=== PATIENT | female | born 1960 | race Hispanic/Latino ===

== ENCOUNTER 2016-12-13 10:47 | Emergency (ER) | payer MEDICARE ==
[2016-12-13] MEDS ORDERED: MOTRIN PO ONE (14:11)
[2016-12-13 14:48] VITALS: BP 166/88
--- NOTE | 2016-12-13 17:16 | Emergency Department Report ---
Entered by RONALD DANIELS, acting as scribe for KOBI LÓPEZ PA. ED General Adult HPI - General Chief complaint: Extremity Injury, Upper Stated complaint: EYE SWOLLEN/ARM PAIN Time Seen by Provider: 12/13/16 13:11 Source: patient, family Mode of arrival: Ambulatory Limitations: No Limitations - History of Present Illness Initial comments: 56 year old female with a PMHx of HTN and IDDM presents to the ED c/o right eye swelling that began this morning. Patient states she was playing 2 days ago, and was subsequently hit on the eye with an elbow. Associated symptoms include blurry vision in right eye and mild headache, but she denies right eye discharge , nausea, vomiting, chest pain, SOB, fever, and chills. Patient also c/o of left arm pain that began 1 week ago. Rates pain an 8/10 in severity and describes the pain as pulling in quality. Notes she had a titanium plate and 9 screws placed in left arm in 2005. Associated symptom include swelling, but denies numbness and tingling. Denies any injury or falls. Allergic to metronidazole. MD Complaint: Right eye swelling/left forearm pain Onset/Timin -: week(s) (left forearm pain), This morning (right eye swelling) Location: eyes (right), upper extremity (left forearm) Radiation: non-radiation Severity scale (0 -10): 7 (left forearm) Quality: other (pulling) Consistency: constant Improves with: none Worsens with: none Associated Symptoms: denies other symptoms, headaches, other (blurry vision in right eye and left forearm swelling, but denies right eye purulent drainage, numbness, and tingling). denies: chest pain, cough, fever/chills, nausea/ vomiting, rash, shortness of breath, weakness - Related Data Home Medications Medication Instructions Recorded Confirmed Last Taken Triamter/Hctz 37.5-25 mg 1 tab PO QDAY 10/07/14 10/15/14 09/29/16 [Maxzide-25] Canagliflozin [Invokana] 300 mg PO DAILY 09/29/16 09/29/16 09/29/16 metFORMIN [Glucophage] 500 mg PO BID 09/29/16 09/29/16 09/29/16 Previous Rx's Medication Instructions Recorded Last Taken Type Gentamicin 0.3% Oph Soln 2 drops OP Q4H #1 bottle 10/15/14 Unknown Rx Cyclobenzaprine [Flexeril 10 MG 10 mg PO DAILY #20 tablet 12/13/16 Unknown Rx TAB] Meloxicam [Mobic] 7.5 mg PO TID #30 tablet 12/13/16 Unknown Rx Tetrahydrz/Dext 70/Peg 400/Pvp 1 - 2 drops OP TID #15 ml 12/13/16 Unknown Rx [Eye Drops Advanced Relief] Allergies Allergy/AdvReac Type Severity Reaction Status Date / Time metronidazole [From Flagyl] AdvReac Hives Verified 10/15/14 07:34 Metronidazole HCl AdvReac Hives Verified 10/15/14 07:34 [From Flagyl] ED Review of Systems Comment: All other systems reviewed and negative Constitutional: other (tingling). denies: chills, fever Eyes: eye pain (right), vision change (blurry vision in right eye) Respiratory: denies: cough, orthopnea, shortness of breath, SOB with exertion, SOB at rest, stridor Cardiovascular: denies: chest pain, dyspnea on exertion, orthopnea Gastrointestinal: denies: abdominal pain, nausea, vomiting Musculoskeletal: joint swelling (minimal left forearm), other (left forearm pain ). denies: back pain Skin: denies: rash Neurological: headache. denies: numbness ED Past Medical Hx - Past Medical History Previous Medical History?: Yes Hx Hypertension: Yes (FOR 12 YRS, DR. 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 - Surgical History Past Surgical History?: Yes Hx Cholecystectomy: Yes Additional Surgical History: fistula surgery, hemorrhoidectomy, lap band surgery , titanium plate and 9 screws placed in L arm 2006 - Social History Smoking Status: Never Smoker Substance Use Type: None - Medications Home Medications: Home Medications Medication Instructions Recorded Confirmed Last Taken Type Triamter/Hctz 37.5-25 mg 1 tab PO QDAY 10/07/14 10/15/14 09/29/16 History [Maxzide-25] Gentamicin 0.3% Ophth Soln 2 drops OP Q4H #1 bottle 10/15/14 Unknown Rx Canagliflozin [Invokana] 300 mg PO DAILY 02/18/17 02/18/17 02/18/17 History metFORMIN [Glucophage] 500 mg PO BID 09/29/16 09/29/16 09/29/16 History Cyclobenzaprine [Flexeril 10 MG 10 mg PO DAILY #20 tablet 12/13/16 Unknown Rx TAB] Meloxicam [Mobic] 7.5 mg PO TID #30 tablet 12/13/16 Unknown Rx Tetrahydrz/Dext 70/Peg 400/Pvp 1 - 2 drops OP TID #15 ml 12/13/16 Unknown Rx [Eye Drops Advanced Relief] ED Physical Exam - General Limitations: No Limitations General appearance: alert, in no apparent distress - Head Head exam: Present: atraumatic, normocephalic - Eye Eye exam: Present: normal appearance, EOMI, other (right eye tenderness) Pupils: Present: normal accommodation - ENT ENT exam: Present: normal exam, mucous membranes moist - Neck Neck exam: Present: normal inspection, full ROM - Respiratory Respiratory exam: Present: normal lung sounds bilaterally. Absent: respiratory distress, wheezes, rales, rhonchi, stridor - Cardiovascular Cardiovascular Exam: Present: regular rate, normal rhythm. Absent: systolic murmur, diastolic murmur, rubs, gallop - GI/Abdominal GI/Abdominal exam: Present: soft, normal bowel sounds. Absent: distended, tenderness, guarding, rebound - Extremities Exam Extremities exam: Present: normal inspection, full ROM, tenderness (left forearm tenderness), normal capillary refill - Expanded Upper Extremity Exam Left General: Present: other, normal inspection Shoulder Exam: Present: normal inspection, full ROM Upper Arm exam: Present: normal inspection, full ROM. Absent: tenderness Elbow exam: Present: normal inspection, full ROM. Absent: tenderness Forearm Wrist exam: Present: normal inspection, full ROM, tenderness (left forearm tenderness), swelling (minimal). Absent: abrasion, ecchymosis, deformity, dislocation Hand Wrist exam: Present: normal inspection, full ROM. Absent: tenderness Neuro motor exam: Present: wrist extension intact, thumb opposition intact, thumb IP flexion intact, thumb adduction intact, fingers 2-5 abduction intact Neurosensory exam: Present: radial nerve intact, ulnar nerve intact, median nerve intact Vascular: Present: normal capillary refill, radial pulse (2+), brachial pulse (2 +), ulnar pulse (2+). Absent: vascular compromise, pulse deficit radial art, pulse deficit ulnar art, pulse deficit brachial art - Back Exam Back exam: Present: normal inspection, full ROM - Neurological Exam Neurological exam: Present: alert, oriented X3 - Psychiatric Psychiatric exam: Present: normal affect, normal mood - Skin Skin exam: Present: warm, dry, intact. Absent: rash ED Course Vital Signs 12/13/16 11:38 Temperature 98.6 F Pulse Rate 82 Respiratory 18 Rate Blood Pressure 175/112 O2 Sat by Pulse 98 Oximetry ED Medical Decision Making - Medical Decision Making 56-year-old female presents with blepharitis of the right eye upper lid ED course: Patient received Motrin in the ED. Vision intact bilaterally Patient is in no acute or respiratory distress. Vital signs are normal. Blood pressure mildly elevated. Discussed patient take her blood pressure medication upon returning home. Patient states she will comply and take her medication. Discussed with patient follow-up with her primary care physician. ED Disposition Clinical Impression: Blepharitis of upper eyelid Lumbar back pain Qualifiers: Chronicity: chronic Back pain laterality: right Sciatica presence: with sciatica Sciatica laterality: sciatica of right side Qualified Code(s): M54.41 - Lumbago with sciatica, right side; G89.29 - Other chronic pain Disposition: DISCHARGED TO HOME OR SELFCARE Is pt being admited?: No Does the pt Need Aspirin: No Condition: Stable Instructions: Blepharitis (ED), Lumbar Radiculopathy (ED) Prescriptions: Cyclobenzaprine [Flexeril 10 MG TAB] 10 mg PO DAILY #20 tablet Meloxicam [Mobic] 7.5 mg PO TID #30 tablet Tetrahydrz/Dext 70/Peg 400/Pvp [Eye Drops Advanced Relief] 1 - 2 drops OP TID # 15 ml Referrals: PRIMARY CAREMD [Primary Care Provider] - 3-5 Days HAKAN CERRATO MD [Referring] - 3-5 Days [facility] [Outside] - 3-5 Days [facility] [Outside] - 3-5 Days [facility] [Outside] - 3-5 Days Forms: Work/School Release Form(ED) Time of Disposition: 14:11 This documentation as recorded by the FRANCES singh JASMINE,accurately reflects the service I personally performed and the decisions made by ,KOBI LÓPEZ PA.
== END 2016-12-13 15:52 | disposition home or self-care (01) ==
LOC: ED 10:47
DX: H01.001 Unspecified blepharitis right upper eyelid (principal); M54.41 Lumbago with sciatica, right side; G89.29 Other chronic pain; I10 Essential (primary) hypertension; E11.9 Type 2 diabetes mellitus without complications
CPT/HCPCS: 99282

== ENCOUNTER 2017-12-13 11:35 | Emergency (ER) | payer MEDICARE ==
[2017-12-13 11:49] VITALS: BP 132/82
[2017-12-13] MEDS ORDERED: NORCO 5/325 PO ONE (13:16)
--- NOTE | 2017-12-13 13:20 | Emergency Department Report ---
Chief Complaint: Back Pain/Injury Stated Complaint: RIGHT LEG PAIN Time Seen by Provider: 12/13/17 13:11 - HPI History of Present Illness: 57-year-old female presents to the emergency department with complaint of pain to the low back with some sciatica like radiation of pain down her right leg. She also complains of pain to the right leg from the upper portion of the ludwig down through the ankle and foot. This all occurred after the patient fell in the shower 2 days ago. She was at [facility] and therefore did not seek any type of evaluation or treatment at that time. She does have a history of sciatica pain. She is not taking anything for her symptoms prior to presentation. Her primary care physician is Dr. Uriel Tellez. - ROS Review of Systems: Positive for back pain, shoulder pain, leg pain, bruising, sciatica Negative for numbness, obvious deformity, laceration - Exam Vital Signs: Vital Signs 12/13/17 11:47 Temperature 98.4 F Pulse Rate 85 Respiratory 18 Rate Blood Pressure 132/82 O2 Sat by Pulse 97 Oximetry Physical Exam: Patient is awake and alert and in no acute distress. She has some tenderness palpation to the right lower extremity from the mid tib-fib distally. There are some areas of ecchymosis to the distal tib-fib and the dorsum of the right foot. Heart and lungs normal auscultation. MSE screening note: Focused history and physical exam performed. Due to findings the following was ordered: Patient Fox x-ray of her right shoulder, lumbar spine, right tib-fib and right foot. She was given a Hawley for discomfort. ED Disposition for MSE Condition: Stable Referrals: URIEL TELLEZ MD [Primary Care Provider] - 3-5 Days
--- NOTE | 2017-12-13 14:00 | XRay Report ---
RIGHT FOOT, 3 views: History: Right foot pain. The bony architecture is intact. Bony alignment is normal. No soft tissue abnormalities are seen. The joint spaces appear preserved. Moderate plantar spur is noted. IMPRESSION: No acute process identified. Plantar spur.
--- NOTE | 2017-12-13 14:01 | XRay Report ---
RIGHT SHOULDER, 3 VIEWS: HISTORY: right shoulder pain. Normal bone mineralization. No acute osseous injury or joint pathology is detected. The soft tissues are unremarkable. IMPRESSION: Right shoulder within normal limits.
--- NOTE | 2017-12-13 14:01 | XRay Report ---
LUMBOSACRAL SPINE, 3 VIEWS: History: Back pain Findings: The vertebral bodies, disk spaces and posterior elements are intact. No compression deformity or malalignment. Moderate multilevel degenerative disc disease and facet arthropathy are noted. The SI joints are symmetric and unremarkable. Impression: Lumbar spondylosis. No evidence for acute injury to the lumbar spine.
--- NOTE | 2017-12-13 14:01 | XRay Report ---
RIGHT TIBIA/FIBULA: History: Right leg pain AP and lateral views of the right tibia/fibula demonstrate normal mineralization and contours for this patient's age. No destructive changes are noted and the adjacent soft tissues are normal. IMPRESSION: Unremarkable right tibia/fibula.
--- NOTE | 2017-12-13 15:25 | Emergency Department Report ---
ED Back Pain/Injury HPI - General Chief Complaint: Back Pain/Injury Stated Complaint: RIGHT LEG PAIN Time Seen by Provider: 12/13/17 13:11 Source: patient Limitations: No Limitations - History of Present Illness Initial Comments: This is a 57-year-old female Presents with low back pain with sciatica down the right lower extremity. Patient reports being [place] [facility] [place] at [place] conference and fell in the shower at the hotel [place] night. Patient reports immediately right lower extremity was burning and pain with weightbearing. When she woke up the next morning she did experience a headache and low back pain was sharp pains radiating down right leg. Her right shoulder was painful and she noticed mild swelling on lateral elbow area. She does have a history of chronic low back pain. She is currently taking and Greenway for pain and followed by Dr. Uriel Tellez. Patient reports pain medication is almost out and need something to help relieve pain. States she is having some numbness to the right lower extremity with mild swelling. Pain is aggravated with ambulating. Denies loss of consciousness, nausea/vomiting, chest pain, shortness of breath, and deformity. MD Complaint: back pain (midline back pain with sciatica on RLE), fall, other ( right shoulder) -: days(s) (3 days) Similar Symptoms Previously: Yes (history of chronic back pain with sciatica) [facility] Radiation: right leg Severity: moderate Severity scale (0 -10): 7 Quality: burning, aching Consistency: intermittent Improves With: immobilization, sitting upright Worsens With: movement, walking Context: fall Associated Symptoms: numbness, difficulty walking. denies: confusion, weakness , chest pain, cough, difficulty urinating, diaphoresis, incontinence, fever/ chills, constipation, headaches, abdominal pain, loss of appetite, malaise, nausea/vomiting, rash, seizure, shortness of breath, syncope Treatments Prior to Arrival: prescription analgesics - Related Data Home Medications Medication Instructions Recorded Confirmed Last Taken Triamter/Hctz 37.5-25 mg 1 tab PO QDAY 10/07/14 10/15/14 09/29/16 [Maxzide-25] Canagliflozin [Invokana] 300 mg PO DAILY 09/29/16 09/29/16 09/29/16 metFORMIN [Glucophage] 500 mg PO BID 09/29/16 09/29/16 09/29/16 Previous Rx's Medication Instructions Recorded Last Taken Type Gentamicin 0.3% Ophth Soln 2 drops OP Q4H #1 bottle 10/15/14 Unknown Rx Cyclobenzaprine [Flexeril 10 MG 10 mg PO DAILY #20 tablet 12/13/16 Unknown Rx TAB] Meloxicam [Mobic] 7.5 mg PO TID #30 tablet 12/13/16 Unknown Rx Tetrahydrz/Dext 70/Peg 400/Pvp 1 - 2 drops OP TID #15 ml 12/13/16 Unknown Rx [Eye Drops Advanced Relief] HYDROcodone/ACETAMINOPHEN [[place]way 1 each PO Q8H PRN #8 tablet 12/13/17 Unknown Rx 5-325 Tablet] methOCARBAMOL [Robaxin TAB] 500 mg PO BID PRN #10 tab 12/13/17 Unknown Rx Allergies Allergy/AdvReac Type Severity Reaction Status Date / Time metronidazole [From Flagyl] AdvReac Hives Verified 12/13/17 11:47 Metronidazole HCl AdvReac Hives Verified 12/13/17 11:47 [From Flagyl] ED Review of Systems ROS: Stated complaint: RIGHT LEG PAIN Other details as noted in HPI Constitutional: denies: chills, fever Respiratory: denies: cough, shortness of breath, wheezing Cardiovascular: denies: chest pain, palpitations, edema, syncope Gastrointestinal: denies: abdominal pain, nausea, vomiting, diarrhea Musculoskeletal: back pain (right shoulder pain and midline low back pain radiating down RLE), arthralgia (right shoulder pain with movement). 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 No distress. Alert and acting appropriately. Back/Abdomen: Yes Sacroiliac Tenderness (midline tenderness on deep palpation), Yes Straight Leg Raise Pain (RLE), No Abdominal Tenderness, No Perithoracic Tenderness, No Perilumbar Tenderness, No Flank Tenderness Neuro: Yes Normal Sensation, Yes Normal DTR's, No Motor Weakness, No Normal Gait (partial weight bearing to RLE) ED Course Vital Signs 12/13/17 12/13/17 11:47 13:20 Temperature 98.4 F Pulse Rate 85 Respiratory 18 18 Rate Blood Pressure 132/82 O2 Sat by Pulse 97 Oximetry Ed Back Pain Tests - Tests Tests: Normal X Rays ED Medical Decision Making - Radiology Data Radiology results: report reviewed RIGHT SHOULDER, 3 VIEWS: HISTORY: right shoulder pain. Normal bone mineralization. No acute osseous injury or joint pathology is detected. The soft tissues are unremarkable. IMPRESSION: Right shoulder within normal limits. RIGHT TIBIA/FIBULA: History: Right leg pain AP and lateral views of the right tibia/fibula demonstrate normal mineralization and contours for this patient's age. No destructive changes are noted and the adjacent soft tissues are normal. IMPRESSION: Unremarkable right tibia/fibula. RIGHT FOOT, 3 views: History: Right foot pain. The bony architecture is intact. Bony alignment is normal. No soft tissue abnormalities are seen. The joint spaces appear preserved. Moderate plantar spur is noted. IMPRESSION: No acute process identified. Plantar spur. LUMBOSACRAL SPINE, 3 VIEWS: History: Back pain Findings: The vertebral bodies, disk spaces and posterior elements are intact. No compression deformity or malalignment. Moderate multilevel degenerative disc disease and facet arthropathy are noted. The SI joints are symmetric and unremarkable. Impression: Lumbar spondylosis. No evidence for acute injury to the lumbar spine. - Medical Decision Making This is a 57 y.o. female that presents with right shoulder, midline lower back pain with sciatica to RLE from fall 3 days ago. Patient is stable and examined by me and Dr. Ayoub. Xray of L-Spine, right foot, right tibia/fibula, and right shoulder obtained and normal exam. No acute signs of distress noted. Discussed plan to start norco 5/325 mg po #8 and Robaxin. Patient agrees to ED plan of care. Discharged home. Follow up with PCP in 3 days. Critical care attestation.: If time is entered above; I have spent that time in minutes in the direct care of this critically ill patient, excluding procedure time. ED Disposition Clinical Impression: Muscle strain of lower extremity Qualifiers: Encounter type: initial encounter Laterality: right Qualified Code(s): S86.911A - Strain of unspecified muscle(s) and tendon(s) at lower leg level, right leg, initial encounter Low back pain with sciatica Qualifiers: Chronicity: acute Back pain laterality: midline Sciatica laterality: sciatica of right side Qualified Code(s): M54.41 - Lumbago with sciatica, right side Strain of shoulder, right Qualifiers: Encounter type: initial encounter Qualified Code(s): S46.911A - Strain of unspecified muscle, fascia and tendon at shoulder and upper arm level, right arm , initial encounter Disposition: TO HOME OR SELFCARE Is pt being admited?: No Does the pt Need Aspirin: No Condition: Stable Instructions: Ankle Exercises (GEN), Muscle Strain (ED), Lumbar Radiculopathy ( ED) Additional Instructions: Rest Use ice or heat on affected area for 20 minutes and off for 2 hours. Take pain medication as needed for pain. Don't drive or operate heavy machinery while taking muscle relaxers because they may cause drowsiness. Follow up with Primary Care Provider in 2-3 days. Prescriptions: HYDROcodone/ACETAMINOPHEN [Greenway 5-325 Tablet] 1 each PO Q8H PRN #8 tablet PRN Reason: Pain methOCARBAMOL [Robaxin TAB] 500 mg PO BID PRN #10 tab PRN Reason: Muscle Spasm Referrals: URIEL TELLEZ MD [Primary Care Provider] - 3-5 Days Time of Disposition: 15:46 Print Language: BAHRAINI ED Lower ext EXAM - Physical Exam General Appearance: obese Legs: right leg: ecchymosis, limited range of motion, soft tissue tenderness, swelling, left leg: non-tender, normal inspection, normal range of motion, no evidence of injury Ankle: right ankle: limited range of motion, pain, soft tissue tenderness, swelling, left ankle: non-tender, bilateral ankle: normal range of motion Neuro/Tendon: normal sensation Mental Status: alert, oriented x 3 Skin Exam: normal color Upper Extremity Exam - Exam General: Vital signs noted. No distress. Alert and acting appropriately. Head and Torso: No HEENT Abnormality, No Neck Tenderness, No Chest/Lungs Abnormality, No Abdominal Tenderness, No Back Tenderness Shoulder Exam: Yes Shoulder Tenderness, Yes AC Joint Tenderness, No Clavicle Tenderness, No Normal Range of Motion in Shoulder (limited to pain), No Shoulder Deformity Arm Exam: No Arm/Humerus Tenderness, No Arm Deformity Elbow: Yes Normal Range of Motion in Elbow, No Elbow Tenderness, No Elbow Deformity Forearm: No Forearm Tenderness, No Forearm Deformity, No Pain with Pronation, No Pain with Supination Wrist: Yes Normal ROM in Wrist, No Wrist Tenderness, No Wrist Deformity, No Snuffbox Tenderness, No Pain with Axial Thumb Compression Hand: Yes Normal ROM in Digit(s), No Hand Tenderness, No Hand Deformity, No Digit Tenderness, No Digit(s) Deformity, No Tendon Dysfunction CMS Exam: Yes Normal Distal Pulses, Yes Normal Capillary Refill, Yes Normal Distal Sensation, No Broken Skin
[2017-12-13] MEDS ORDERED: DECADRON IM ONE (15:46)
== END 2017-12-13 16:19 | disposition home or self-care (01) ==
LOC: ED 11:35
DX: S86.911A Strain of unspecified muscle(s) and tendon(s) at lower leg level, right leg, initial encounter (principal); S46.911A Strain of unspecified muscle, fascia and tendon at shoulder and upper arm level, right arm, initial encounter; M54.41 Lumbago with sciatica, right side; Z88.8 Allergy status to other drugs, medicaments and biological substances; X58.XXXA Exposure to other specified factors, initial encounter; Y93.89 Activity, other specified; Y92.89 Other specified places as the place of occurrence of the external cause; Y99.8 Other external cause status
CPT/HCPCS: 72100; 73030; 73590; 73630; 96372; 99283; J1100

== ENCOUNTER 2018-01-07 12:34 | Emergency (ER) | payer MEDICARE ==
--- NOTE | 2018-01-07 13:38 | Emergency Department Report ---
ED General Adult HPI - General Chief complaint: Extremity Injury, Lower Stated complaint: DIZZINESS Time Seen by Provider: 01/07/18 13:24 Source: patient Mode of arrival: Ambulatory Limitations: No Limitations - History of Present Illness Initial comments: Patient is 57 years old female with history of diabetes. Patient presented to the ER complaining of right leg pain and swelling and redness for the last 2 weeks. Patient was seen here 3 weeks ago for a fall with negative x-rays. She stated that a jar fell on her right leg. She stated that she is worried about infection since symptoms are not improving. She denied any fever, nausea or vomiting. - Related Data Home Medications Medication Instructions Recorded Confirmed Last Taken Triamter/Hctz 37.5-25 mg 1 tab PO QDAY 10/07/14 10/15/14 09/29/16 [Maxzide-25] Canagliflozin [Invokana] 300 mg PO DAILY 09/29/16 09/29/16 09/29/16 metFORMIN [Glucophage] 500 mg PO BID 09/29/16 09/29/16 09/29/16 Previous Rx's Medication Instructions Recorded Last Taken Type Gentamicin 0.3% Ophth Soln 2 drops OP Q4H #1 bottle 10/15/14 Unknown Rx Cyclobenzaprine [Flexeril 10 MG 10 mg PO DAILY #20 tablet 12/13/16 Unknown Rx TAB] Meloxicam [Mobic] 7.5 mg PO TID #30 tablet 12/13/16 Unknown Rx Tetrahydrz/Dext 70/Peg 400/Pvp 1 - 2 drops OP TID #15 ml 12/13/16 Unknown Rx [Eye Drops Advanced Relief] HYDROcodone/ACETAMINOPHEN [[place] 1 each PO Q8H PRN #8 tablet 12/13/17 Unknown Rx 5-325 Tablet] methOCARBAMOL [Robaxin TAB] 500 mg PO BID PRN #10 tab 12/13/17 Unknown Rx Allergies Allergy/AdvReac Type Severity Reaction Status Date / Time metronidazole [From Flagyl] AdvReac Hives Verified 12/13/17 11:47 Metronidazole HCl AdvReac Hives Verified 12/13/17 11:47 [From Flagyl] ED Review of Systems ROS: Stated complaint: DIZZINESS Other details as noted in HPI Comment: All other systems reviewed and negative Constitutional: denies: chills, fever Respiratory: denies: cough, orthopnea, shortness of breath, SOB with exertion Cardiovascular: denies: chest pain, palpitations Gastrointestinal: denies: abdominal pain, nausea, vomiting ED Past Medical Hx - Past Medical History Hx Hypertension: Yes Hx Diabetes: Yes Additional medical history: 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 - Surgical History Hx Cholecystectomy: Yes Additional Surgical History: fistula surgery, hemorrhoidectomy, lap band surgery , titanium plate and 9 screws placed in L arm 2005 - Social History Smoking Status: Never Smoker Substance Use Type: None - Medications Home Medications: Home Medications Medication Instructions Recorded Confirmed Last Taken Type Triamter/Hctz 37.5-25 mg 1 tab PO QDAY 10/07/14 10/15/14 09/29/16 History [Maxzide-25] Gentamicin 0.3% Ophth Soln 2 drops OP Q4H #1 bottle 10/15/14 Unknown Rx Canagliflozin [Invokana] 300 mg PO DAILY 09/29/16 09/29/16 09/29/16 History metFORMIN [Glucophage] 500 mg PO BID 09/29/16 09/29/16 09/29/16 History Cyclobenzaprine [Flexeril 10 MG 10 mg PO DAILY #20 tablet 12/13/16 Unknown Rx TAB] Meloxicam [Mobic] 7.5 mg PO TID #30 tablet 12/13/16 Unknown Rx Tetrahydrz/Dext 70/Peg 400/Pvp 1 - 2 drops OP TID #15 ml 12/13/16 Unknown Rx [Eye Drops Advanced Relief] HYDROcodone/ACETAMINOPHEN [[place] 1 each PO Q8H PRN #8 tablet 12/13/17 Unknown Rx 5-325 Tablet] methOCARBAMOL [Robaxin TAB] 500 mg PO BID PRN #10 tab 12/13/17 Unknown Rx ED Physical Exam - General Limitations: No Limitations General appearance: alert, in no apparent distress - Head Head exam: Present: atraumatic - ENT ENT exam: Present: normal exam, normal orophraynx - Neck Neck exam: Present: normal inspection - Respiratory Respiratory exam: Present: normal lung sounds bilaterally - Cardiovascular Cardiovascular Exam: Present: regular rate, normal rhythm, normal heart sounds - GI/Abdominal GI/Abdominal exam: Present: soft, normal bowel sounds. Absent: distended, tenderness, guarding, rebound, rigid - Extremities Exam Extremities exam: Present: tenderness, normal capillary refill. Absent: pedal edema, joint swelling, calf tenderness - Neurological Exam Neurological exam: Present: alert, oriented X3, CN II-XII intact, normal gait - Skin Skin exam: Present: warm, intact, normal color ED Course Vital Signs 01/07/18 12:48 Temperature 98.6 F Pulse Rate 109 H Respiratory 18 Rate Blood Pressure 153/96 O2 Sat by Pulse 100 Oximetry ED Medical Decision Making - Medical Decision Making Swelling and redness to the right lower leg could be due to inflammation from the recent injury or cellulitis. Patient refused x-ray. I will start patient on Keflex and Naprosyn. I advised patient to follow-up with her primary care physician and to return to the ER if her symptoms are not improving. Critical care attestation.: If time is entered above; I have spent that time in minutes in the direct care of this critically ill patient, excluding procedure time. ED Disposition Clinical Impression: Right leg pain, Cellulitis Disposition: DC-01 TO HOME OR SELFCARE Is pt being admited?: No Condition: Stable Instructions: Cellulitis (ED) Referrals: ZAHRA BEDOYA MD [Primary Care Provider] - 3-5 Days
[2018-01-07 13:45] VITALS: BP 148/92
== END 2018-01-07 13:45 | disposition home or self-care (01) ==
LOC: ED 12:34
DX: L03.115 Cellulitis of right lower limb (principal); I10 Essential (primary) hypertension; E11.9 Type 2 diabetes mellitus without complications; Z88.8 Allergy status to other drugs, medicaments and biological substances
CPT/HCPCS: 82962; 99283

== ENCOUNTER 2018-09-06 17:38 | Emergency (ER) | payer MEDICARE ==
[2018-09-06 18:44] LABS: Hemoglobin 14.6 gm/dl (10.1-14.3); Mean Corpuscular HGB Conc 33 % (30-34); Mean Corpuscular Volume 83 fl (79-97); Platelet Count 260 K/mm3 (140-440); Red Blood Count 5.29 M/mm3 (3.65-5.03); Red Cell Distribution Width 14.2 % (13.2-15.2)
[2018-09-06 19:01] LABS: Alanine Aminotransferase 18 units/L (7-56); Albumin 3.5 g/dL (3.9-5); BUN/Creatinine Ratio 10; Blood Urea Nitrogen 6 mg/dL (7-17); Calcium 8.6 mg/dL (8.4-10.2); Hemolysis Index 5
[2018-09-06 19:12] LABS: HCG Qualitative,Urine Negative (Negative)
[2018-09-06 19:16] LABS: Bacteria,Urine 1+ /HPF (Negative); Bilirubin,Urine NEG (Negative); Blood,Urine NEG (Negative); Color,Urine Yellow (Yellow); Mucus,Urine FEW /HPF; Protein,Urine <15 mg/dL mg/dL (Negative); RBC,Urine < 1.0 /HPF (0.0-6.0); Urobilinogen,Urine < 2.0 mg/dL (<2.0)
--- NOTE | 2018-09-06 20:15 | Emergency Department Report ---
ED Abdominal Pain HPI - General Chief Complaint: Abdominal Pain Stated Complaint: LOWER STOMACH PAIN Time Seen by Provider: 09/06/18 19:35 Source: patient, family Mode of arrival: Ambulatory Limitations: No Limitations - History of Present Illness Initial Comments: This is a 58-year-old female here report lower abdominal cramping started 3 days ago with last BM today. She says she had 5 PM today and once from regular to loose stool. Denies any fever or chills. Lower abdominal pain is 10/10 and cramping. Pain is intermittent and no exacerbating or alleviating factors. She says she try to take [id number] medication but no relief. She denies any urinary burning, frequency or urgency. Denies any back pain or fever or chills. Denies any chest pain or shortness of breath. MD Complaint: abdominal pain, other (nausea vomiting and diarrhea) Onset/Timin -: days(s) Location: suprapubic Radiation: none Migration to: no migration Severity: severe Severity scale (0 -10): 10 Quality: cramping Consistency: intermittent Improves With: nothing Worsens With: nothing Context: other (unknown) Associated Symptoms: nausea, vomiting, diarrhea. denies: fever, chills, constipation, dysuria, hematemesis, hematochezia, melena, hematuria, anorexia, syncope (is more) Treatments Prior to Arrival: antacids - Related Data LMP (females 10-50): other (menopause) Home Medications Medication Instructions Recorded Confirmed Last Taken Triamter/Hctz 37.5-25 mg 1 tab PO QDAY 10/07/14 10/15/14 09/29/16 [Maxzide-25] Canagliflozin [Invokana] 300 mg PO DAILY 09/29/16 09/29/16 09/29/16 metFORMIN [Glucophage] 500 mg PO BID 09/29/16 09/29/16 09/29/16 Previous Rx's Medication Instructions Recorded Last Taken Type Gentamicin 0.3% Ophth Soln 2 drops OP Q4H #1 bottle 10/15/14 Unknown Rx Cyclobenzaprine [Flexeril 10 MG 10 mg PO DAILY #20 tablet 12/13/16 Unknown Rx TAB] Meloxicam [Mobic] 7.5 mg PO TID #30 tablet 12/13/16 Unknown Rx Tetrahydrz/Dext 70/Peg 400/Pvp 1 - 2 drops OP TID #15 ml 12/13/16 Unknown Rx [Eye Drops Advanced Relief] HYDROcodone/ACETAMINOPHEN [[place] 1 each PO Q8H PRN #8 tablet 12/13/17 Unknown Rx 5-325 Tablet] methOCARBAMOL [Robaxin TAB] 500 mg PO BID PRN #10 tab 12/13/17 Unknown Rx Naproxen [Naprosyn] 500 mg PO BID #14 tablet 01/07/18 Unknown Rx cephALEXin [Keflex] 500 mg PO Q8HR #30 cap 01/07/18 Unknown Rx Dicyclomine [Bentyl] 40 mg PO Q8H 3 Days #9 tablet 09/06/18 Unknown Rx Promethazine [Phenergan TAB] 25 mg PO Q6HR PRN #12 tab 09/06/18 Unknown Rx Allergies Allergy/AdvReac Type Severity Reaction Status Date / Time metronidazole [From Flagyl] AdvReac Hives Verified 09/06/18 17:46 Metronidazole HCl AdvReac Hives Verified 09/06/18 17:46 [From Flagyl] ED Review of Systems ROS: Stated complaint: LOWER STOMACH PAIN Other details as noted in HPI Constitutional: denies: chills ENT: denies: throat pain, congestion Respiratory: denies: cough, shortness of breath, wheezing Cardiovascular: denies: chest pain, palpitations, edema, syncope Gastrointestinal: abdominal pain, nausea, vomiting, diarrhea. 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 - Surgical History Past Surgical History?: Yes Hx Cholecystectomy: Yes Additional Surgical History: fistula surgery, hemorrhoidectomy, lap band surgery, titanium plate and 9 screws placed in L arm 2006 - Family History Family history: diabetes, hypertension - Social History Smoking Status: Never Smoker Substance Use Type: Alcohol - Medications Home Medications: Home Medications Medication Instructions Recorded Confirmed Last Taken Type Triamter/Hctz 37.5-25 mg 1 tab PO QDAY 10/07/14 10/15/14 09/29/16 History [Maxzide-25] Gentamicin 0.3% Ophth Soln 2 drops OP Q4H #1 bottle 10/15/14 Unknown Rx Canagliflozin [Invokana] 300 mg PO DAILY 09/29/16 09/29/16 09/29/16 History metFORMIN [Glucophage] 500 mg PO BID 09/29/16 09/29/16 09/29/16 History Cyclobenzaprine [Flexeril 10 MG 10 mg PO DAILY #20 tablet 12/13/16 Unknown Rx TAB] Meloxicam [Mobic] 7.5 mg PO TID #30 tablet 12/13/16 Unknown Rx Tetrahydrz/Dext 70/Peg 400/Pvp 1 - 2 drops OP TID #15 ml 12/13/16 Unknown Rx [Eye Drops Advanced Relief] HYDROcodone/ACETAMINOPHEN [[place] 1 each PO Q8H PRN #8 tablet 12/13/17 Unknown Rx 5-325 Tablet] methOCARBAMOL [Robaxin TAB] 500 mg PO BID PRN #10 tab 12/13/17 Unknown Rx Naproxen [Naprosyn] 500 mg PO BID #14 tablet 01/07/18 Unknown Rx cephALEXin [Keflex] 500 mg PO Q8HR #30 cap 01/07/18 Unknown Rx Dicyclomine [Bentyl] 40 mg PO Q8H 3 Days #9 tablet 09/06/18 Unknown Rx Promethazine [Phenergan TAB] 25 mg PO Q6HR PRN #12 tab 09/06/18 Unknown Rx ED Physical Exam - General Limitations: No Limitations General appearance: alert, in no apparent distress - Head Head exam: Present: atraumatic, normocephalic, normal inspection - Eye Eye exam: Present: normal appearance, PERRL, EOMI Pupils: Present: normal accommodation - ENT ENT exam: Present: normal exam, normal orophraynx, mucous membranes moist - Neck Neck exam: Present: normal inspection, full ROM. Absent: tenderness, lymphadenopathy - Respiratory Respiratory exam: Present: normal lung sounds bilaterally. Absent: respiratory distress, chest wall tenderness - Cardiovascular Cardiovascular Exam: Present: regular rate, normal rhythm, normal heart sounds - GI/Abdominal GI/Abdominal exam: Present: soft, tenderness (mild tenderness abdomen generalized.), normal bowel sounds. Absent: distended, guarding, rebound, rigid, organomegaly, mass, bruit, pulsatile mass, hernia - Extremities Exam Extremities exam: Present: normal inspection, full ROM, normal capillary refill, other (No cce. + 2 pulses in all extremities, no neurovascular compromise). Absent: tenderness, pedal edema, joint swelling, calf tenderness - Back Exam Back exam: Present: normal inspection, full ROM, other (ambulates without any difficulties). Absent: tenderness, CVA tenderness (R), CVA tenderness (L) - Neurological Exam Neurological exam: Present: alert, oriented X3, normal gait - Psychiatric Psychiatric exam: Present: normal affect, normal mood - Skin Skin exam: Present: warm, dry, intact, normal color. Absent: rash ED Course Vital Signs 09/06/18 09/07/18 17:46 00:04 Temperature 97.7 F 97.2 F L Pulse Rate 91 H 74 Respiratory 18 18 Rate Blood Pressure 154/94 Blood Pressure 144/74 [Left] O2 Sat by Pulse 97 97 Oximetry - Reevaluation(s) Reevaluation #1: 09/06/18 21:37 Patient given Bentyl 40 mg by mouth, lidocaine 15 mL and Maalox 30 mL by mouth, 1 L of normal saline, Zofran 8 mg IV and morphine 4 mg IV for abdominal pain and nausea and vomiting. She says she felt better upon reevaluation and abdominal is nontender to palpate. I waited in results of CT scan with IV contrast. Reevaluation #2: 09/06/18 23:38 Patient is stable at present and abdomen is nontender. Pain had been relieved and no nausea. I discussed with her her results she was understanding. ED Medical Decision Making - Lab Data Result diagrams: 09/06/18 18:13 09/06/18 18:13 Lab Results 09/06/18 09/06/18 09/06/18 Range/Units 18:13 18:13 20:17 WBC 8.7 (4.5-11.0) K/mm3 RBC 5.29 H (3.65-5.03) M/mm3 Hgb 14.6 H (10.1-14.3) gm/dl Hct 44.0 H (30.3-42.9) % MCV 83 (79-97) fl MCH 28 (28-32) pg MCHC 33 (30-34) % RDW 14.2 (13.2-15.2) % Plt Count 260 (140-440) K/mm3 Sodium 142 (137-145) mmol/L Potassium 3.8 (3.6-5.0) mmol/L Chloride 103.3 (98-107) mmol/L Carbon Dioxide 26 (22-30) mmol/L Anion Gap 17 mmol/L BUN 6 L (7-17) mg/dL Creatinine 0.6 L (0.7-1.2) mg/dL Estimated GFR > 60 ml/min BUN/Creatinine Ratio 10 % Glucose 156 H (65-100) mg/dL Calcium 8.6 (8.4-10.2) mg/dL Total Bilirubin 0.30 (0.1-1.2) mg/dL AST 20 (5-40) units/L ALT 18 (7-56) units/L Alkaline Phosphatase 72 (35-129) units/L Total Protein 6.4 (6.3-8.2) g/dL Albumin 3.5 L (3.9-5) g/dL Albumin/Globulin Ratio 1.2 % Lipase 31 (13-60) units/L Urine Color (Yellow) Urine Turbidity (Clear) Urine pH (5.0-7.0) Ur Specific [place] (1.003-1.030) Urine Protein (Negative) mg/dL Urine Glucose (UA) (Negative) mg/dL Urine Ketones (Negative) mg/dL Urine Blood (Negative) Urine Nitrite (Negative) Ur Reducing Substances Urine Bilirubin (Negative) Urine Ictotest Urine Urobilinogen (<2.0) mg/dL Ur Leukocyte Esterase (Negative) Urine WBC (Auto) (0.0-6.0) /HPF Urine RBC (Auto) (0.0-6.0) /HPF U Epithel Cells (Auto) (0-13.0) /HPF Urine Bacteria (Auto) (Negative) /HPF Urine Mucus /HPF Urine HCG, Qual (Negative) 09/06/18 Range/Units Unknown WBC (4.5-11.0) K/mm3 RBC (3.65-5.03) M/mm3 Hgb (10.1-14.3) gm/dl Hct (30.3-42.9) % MCV (79-97) fl MCH (28-32) pg MCHC (30-34) % RDW (13.2-15.2) % Plt Count (140-440) K/mm3 Sodium (137-145) mmol/L Potassium (3.6-5.0) mmol/L Chloride (98-107) mmol/L Carbon Dioxide (22-30) mmol/L Anion Gap mmol/L BUN (7-17) mg/dL Creatinine (0.7-1.2) mg/dL Estimated GFR ml/min BUN/Creatinine Ratio % Glucose (65-100) mg/dL Calcium (8.4-10.2) mg/dL Total Bilirubin (0.1-1.2) mg/dL AST (5-40) units/L ALT (7-56) units/L Alkaline Phosphatase (35-129) units/L Total Protein (6.3-8.2) g/dL Albumin (3.9-5) g/dL Albumin/Globulin Ratio % Lipase (13-60) units/L Urine Color Yellow (Yellow) Urine Turbidity Clear (Clear) Urine pH 5.0 (5.0-7.0) Ur Specific [place] 1.014 (1.003-1.030) Urine Protein <15 mg/dl (Negative) mg/dL Urine Glucose (UA) Neg (Negative) mg/dL Urine Ketones Tr (Negative) mg/dL Urine Blood Neg (Negative) Urine Nitrite Neg (Negative) Ur Reducing Substances Not Reportable Urine Bilirubin Neg (Negative) Urine Ictotest Not Reportable Urine Urobilinogen < 2.0 (<2.0) mg/dL Ur Leukocyte Esterase Neg (Negative) Urine WBC (Auto) 1.0 (0.0-6.0) /HPF Urine RBC (Auto) < 1.0 (0.0-6.0) /HPF U Epithel Cells (Auto) < 1.0 (0-13.0) /HPF Urine Bacteria (Auto) 1+ (Negative) /HPF Urine Mucus Few /HPF Urine HCG, Qual Negative (Negative) - Radiology Data Radiology results: report reviewed Patient had CT scan of the abdomen and pelvis with IV contrast which was dictated by radiologist and report reviewed by myself and showed diffuse fatty infiltrate of the liver with enlarged liver. Correlation with LFTs recommended but patient LFTs are normal. Reports is otherwise no acute findings in the abdomen and pelvis and she also has some degenerative disc disease at L4 to 5 in all L5 to S1. I am unable to populate complete results of CT scan due to radiology malfunction so please see report section for details. - Medical Decision Making This is a 58-year-old female here report that she is having nausea vomiting and diarrhea with lower abdominal pain. This finding for mild tenderness to abdomen and is generalized and other exam is normal. Patient received Zofran, 1 L of normal saline and morphine IV and Maalox, lidocaine and Bentyl by mouth emergency room for relief of abdominal pain and nausea and vomiting. Patient with CBC with mild hemoconcentration suspect from dehydration and she received IV fluid. Her CMP is stable and urinalysis stable except she has small amount of ketones. test was done in triage area which reports negative findings. Patient's CT scan of the abdomen and pelvis showed dictated by radiologist and report reviewed by myself and shows fatty liver disease with enlarged liver and her liver enzymes are normal. Nausea and vomiting is better no abdominal pain is better and patient discharged home in stable condition with prescription for Bentyl and Phenergan. She was instructed to follow up with [facility] and her primary care physician in 2-3 days or to return to emergency room if her symptoms worsened - Differential Diagnosis liver DZ, pancreatic dz, appendicitis GBD, colitis, enteritis, UTI Critical care attestation.: If time is entered above; I have spent that time in minutes in the direct care of this critically ill patient, excluding procedure time. ED Disposition Clinical Impression: Nausea vomiting and diarrhea, Fatty liver, Hepatomegaly Abdominal pain Qualifiers: Abdominal location: generalized Qualified Code(s): R10.84 - Generalized abdominal pain Disposition: TO HOME OR SELFCARE Is pt being admited?: No Does the pt Need Aspirin: No Condition: Stable Instructions: Gastroenteritis (ED), Acute Nausea and Vomiting (ED), Acute Diarrhea (ED), Non-Alcoholic Fatty Liver Disease (ED), Abdominal Pain (ED), DASH Eating Plan (ED), Low Sodium Diet (ED), Nutrition Tips for Relief of Diarrhea (ED) Additional Instructions: Please avoid medication with Tylenol. Avoid alcohol as these things or toxic G liver Follow-up primary care physician and [facility] in 2-[address] scan shows that you have a fatty liver and also enlarged liver and you need to follow up with [facility] for management and further investigation Increasing her fluid intake Take Phenergan for nausea but these do not drive or operate heavy machinery while taking this medication as it causes drowsiness Take Bentyl for abdominal pain. [place] diet for 72 hours to include banana, rice sauce and toast and avoid carbonated beverages, caffeine and spicy food as this irritates stomach lining. If your condition worsens, return to the emergency room. Prescriptions: Dicyclomine [Bentyl] 40 mg PO Q8H 3 Days #9 tablet Promethazine [Phenergan TAB] 25 mg PO Q6HR PRN #12 tab PRN Reason: Nausea Referrals: ZAHRA BEDOYA MD [Primary Care Provider] - 2-3 Days [facility] [Provider Group] - 3-5 Days Forms: Accompanied Note, Work/School Release Form(ED)
[2018-09-06] MEDS ORDERED: ZOFRAN IV ONE (20:20)
[2018-09-06] MEDS ORDERED: BENTYL PO ONE (20:20)
[2018-09-06] MEDS ORDERED: MORPHINE IV ONE (20:20)
[2018-09-06] MEDS ORDERED: NACL 0.9% 1000 ML 1,000 ML IV ONE (20:20)
[2018-09-06] MEDS ORDERED: ALUM-MAG HYDROX-SIMETH 200-200-20MG/5ML PO ONE (20:20)
[2018-09-06] MEDS ORDERED: LIDOCAINE VISCOUS 2% PO ONE (20:20)
--- NOTE | 2018-09-06 21:52 | Cat Scan Report ---
FINAL REPORT EXAM: CT ABDOMEN PELVIS W CON HISTORY: LOWER ABD PAIN, NAUSEA X 2 DAYS. TECHNIQUE: Dynamic helical CT scan through the abdomen and pelvis during and again after intravenous injection of iodinated contrast. Images are reconstructed in the sagittal and coronal planes. Oral c ontrast was not given. PRIORS: None. FINDINGS: The lung bases are clear. There is diffuse low-attenuation of the liver consistent with fatty infiltration. The liver is enlarg ed measuring 20.3 cm in craniocaudal dimension. There are surgical clips in the gallbladder fossa. Th e pancreas, spleen and adrenal glands appear normal. The kidneys appear normal. The pelvic organs appear grossly normal. The stomach appears grossly within normal limits. There are no abnormally dilated loops of bowel or acute inflammatory changes. A normal-appearing appe ndix is identified. The abdominal aorta has a normal diameter. There is degenerative disc disease at L4-5 and L5-S1 with vacuum disc at both levels. IMPRESSION: 1. Diffuse fatty infiltration of the liver with hepatomegaly. Correlation with LFTs is recommended. 2. Otherwise, no acute findings in the abdomen/pelvis 3. Degenerative disc disease at L4-5 and L5-S1
[2018-09-07 00:05] VITALS: BP 144/74
== END 2018-09-07 00:06 | disposition home or self-care (01) ==
LOC: ED 17:38
DX: K76.0 Fatty (change of) liver, not elsewhere classified (principal); I10 Essential (primary) hypertension; E11.9 Type 2 diabetes mellitus without complications; Z90.49 Acquired absence of other specified parts of digestive tract; Z88.8 Allergy status to other drugs, medicaments and biological substances
CPT/HCPCS: 36415; 74177; 80053; 81001; 81025; 83690; 85027; 96361; 96374; 96375; 99284; J2270; J2405; J7030; Q9967

== ENCOUNTER 2018-10-18 16:22 | Inpatient (IN) | payer MEDICARE ==
--- NOTE | 2018-10-18 16:37 | Emergency Department Report ---
Chief Complaint: Chest Pain Stated Complaint: CHEST PAIN Time Seen by Provider: 10/18/18 16:34 - HPI History of Present Illness: CC CHEST PAIN SHE POINTS TO EPIGASTRIC PAIN TOOK ASA AT HOME NO N/V/D PSH FISTULA OF CERVIX REPAIRED CSEC CHOLEY HEMORRHOID PMH HTN RISKS HTN OBESE MOM CAD DM CIG NO RX BP PILL--HCTZ METFORMIN ANTON FUNES ACS MSE COMPLETED MSE screening note: Focused history and physical exam performed. Due to findings the following was ordered: ED Disposition for MSE Condition: Stable
[2018-10-18 17:26] LABS: Basophils # (Auto) 0.1 K/mm3 (0.0-0.1); Basophils % (Auto) 0.8 % (0.0-1.8); Eosinophils # (Auto) 0.1 K/mm3 (0.0-0.4); Eosinophils % (Auto) 1.2 % (0.0-4.3); Hematocrit 41.6 % (30.3-42.9); Hemoglobin 14.4 gm/dl (10.1-14.3); Lymphocytes # (Auto) 2.5 K/mm3 (1.2-5.4); Lymphocytes % (Auto) 29.7 % (13.4-35.0); Mean Corpuscular HGB Conc 35 % (30-34); Mean Corpuscular Volume 82 fl (79-97); Monocytes # (Auto) 0.8 K/mm3 (0.0-0.8); Platelet Count 259 K/mm3 (140-440); Red Blood Count 5.09 M/mm3 (3.65-5.03); Red Cell Distribution Width 14.1 % (13.2-15.2)
[2018-10-18] MEDS ORDERED: SUBLIMAZE IV ONE (17:29)
[2018-10-18] MEDS ORDERED: NITRO-BID 2% TP ONE (17:29)
[2018-10-18] MEDS ORDERED: ZOFRAN IV ONE (17:29)
[2018-10-18] MEDS ORDERED: ASPIRIN PO ONE (17:30)
[2018-10-18 17:46] LABS: Alanine Aminotransferase 20 units/L (7-56); Albumin 3.6 g/dL (3.9-5); BUN/Creatinine Ratio 10; Blood Urea Nitrogen 8 mg/dL (7-17); Calcium 8.6 mg/dL (8.4-10.2); Hemolysis Index 16
--- NOTE | 2018-10-18 17:51 | Emergency Department Report ---
HPI - General Chief Complaint: Chest Pain Time Seen by Provider: 10/18/18 16:34 - HPI HPI: Room 26 The patient is a 58-year-old female presenting with a chief complaint of chest pain. The patient states her symptoms began yesterday with pain in between her shoulder blades. The patient states she went to sleep but her pain persisted. Today she continued to have pain in her back and developed right-sided chest pain described as sharp and pressure-like in nature. Patient states the pain has been constant and associated with slight shortness of breath and diaphoresis. Patient denies nausea/vomiting. Patient admits to pleurisy. Patient states her most recent flight or long trip occurred at the end of August 2018 when she flew to [place]. Patient gets her pain score of 6/10. 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 - Surgical History Past Surgical History?: Yes Hx Cholecystectomy: Yes Additional Surgical History: fistula surgery, hemorrhoidectomy, lap band surgery, titanium plate and 9 screws placed in L arm 2005 - Family History Family history: no significant - Social History Smoking Status: Former Smoker (none 10 years) Substance Use Type: None (denies illicit drug use), Alcohol (occasional) - Medications Home Medications: Home Medications Medication Instructions Recorded Confirmed Last Taken Type Triamter/Hctz 37.5-25 mg 1 tab PO QDAY 10/07/14 10/15/14 09/29/16 History [Maxzide-25] Gentamicin 0.3% Ophth Soln 2 drops OP Q4H #1 bottle 10/15/14 Unknown Rx Canagliflozin [Invokana] 300 mg PO DAILY 09/29/16 09/29/16 09/29/16 History metFORMIN [Glucophage] 500 mg PO BID 09/29/16 09/29/16 09/29/16 History Cyclobenzaprine [Flexeril 10 MG 10 mg PO DAILY #20 tablet 12/13/16 Unknown Rx TAB] Meloxicam [Mobic] 7.5 mg PO TID #30 tablet 12/13/16 Unknown Rx Tetrahydrz/Dext 70/Peg 400/Pvp 1 - 2 drops OP TID #15 ml 12/13/16 Unknown Rx [Eye Drops Advanced Relief] HYDROcodone/ACETAMINOPHEN [[place] 1 each PO Q8H PRN #8 tablet 12/13/17 Unknown Rx 5-325 Tablet] methOCARBAMOL [Robaxin TAB] 500 mg PO BID PRN #10 tab 12/13/17 Unknown Rx Naproxen [Naprosyn] 500 mg PO BID #14 tablet 01/07/18 Unknown Rx cephALEXin [Keflex] 500 mg PO Q8HR #30 cap 01/07/18 Unknown Rx Dicyclomine [Bentyl] 40 mg PO Q8H 3 Days #9 tablet 09/06/18 Unknown Rx Promethazine [Phenergan TAB] 25 mg PO Q6HR PRN #12 tab 09/06/18 Unknown Rx ED Review of Systems ROS: Stated complaint: CHEST PAIN Other details as noted in HPI Constitutional: diaphoresis Eyes: denies: eye pain ENT: denies: throat pain Respiratory: shortness of breath Cardiovascular: chest pain Endocrine: no symptoms reported Gastrointestinal: denies: nausea, vomiting Genitourinary: denies: dysuria Musculoskeletal: back pain Neurological: denies: headache Physical Exam - Physical Exam Vital Signs: Vital Signs 10/18/18 16:33 Temperature 97.9 F Pulse Rate 87 Respiratory 18 Rate Blood Pressure 145/95 O2 Sat by Pulse 99 Oximetry Physical Exam: GENERAL: The patient is well-developed morbidly obese female lying on stretcher not appear to be in acute distress. [] HEENT: Normocephalic. Atraumatic. Extraocular motions are intact. Patient has moist mucous membranes. NECK: Supple. Trachea midline CHEST/LUNGS: Clear to auscultation. There is no respiratory distress noted. HEART/CARDIOVASCULAR: Regular. There is no tachycardia. There is no gallop rub or murmur. ABDOMEN: Abdomen is soft, nontender. Patient has normal bowel sounds. There is no abdominal distention. SKIN: There is no rash. There is no diaphoresis. NEURO: The patient is awake, alert, and oriented. The patient is cooperative. The patient has normal speech MUSCULOSKELETAL: There is no evidence of acute injury. ED Course Vital Signs 10/18/18 16:33 Temperature 97.9 F Pulse Rate 87 Respiratory 18 Rate Blood Pressure 145/95 O2 Sat by Pulse 99 Oximetry ED Medical Decision Making - Lab Data Result diagrams: 10/18/18 17:03 10/18/18 17:03 Laboratory Tests 10/18/18 10/18/18 10/18/18 17:03 17:03 17:31 WBC 8.5 RBC 5.09 H Hgb 14.4 H Hct 41.6 MCV 82 MCH 28 MCHC 35 H RDW 14.1 Plt Count 259 Lymph % (Auto) 29.7 [place] % (Auto) 9.0 H Eos % (Auto) 1.2 Baso % (Auto) 0.8 Lymph # 2.5 [place] # 0.8 Eos # 0.1 Baso # 0.1 Seg Neutrophils % 59.3 Seg Neutrophils # 5.1 D-Dimer 270.91 H Sodium 141 Potassium 3.9 Chloride 104.2 Carbon Dioxide 26 Anion Gap 15 BUN 8 Creatinine 0.8 Estimated GFR > 60 BUN/Creatinine Ratio 10 Glucose 148 H Calcium 8.6 Total Bilirubin 0.20 AST 22 ALT 20 Alkaline Phosphatase 65 Troponin T < 0.010 Total Protein 6.0 L Albumin 3.6 L Albumin/Globulin Ratio 1.5 - EKG Data -: EKG Interpreted by Me EKG shows normal: sinus rhythm Rate: normal - EKG Data When compared to previous EKG there are: previous EKG unavailable Interpretation: nonspecific ST-T wave mitchell (T-wave inversion in lead 3) - Radiology Data Radiology results: pending (CT chest), image reviewed (chest x-ray) interpreted by me: Chest x-ray-no focal infiltrates, no pneumothorax - Differential Diagnosis ACS, PE, pericarditis, GERD Critical care attestation.: If time is entered above; I have spent that time in minutes in the direct care of this critically ill patient, excluding procedure time. ED Disposition Clinical Impression: Chest pain Disposition: OP ADMIT IP TO THIS HOSP Is pt being admited?: Yes Does the pt Need Aspirin: Yes Condition: Fair Instructions: Chest Pain (ED) Time of Disposition: 19:08 (hospitalist notified (Dr Weiner))
--- NOTE | 2018-10-18 19:05 | History and Physical Report ---
History of Present Illness Chief complaint: My chest hurts History of present illness: 58 YO Female with HTN, DM, MO, Obesity Hypoventilation presents to ED for evaluation. Pt states that she has experienced pain in her chest over the past 1 day with worsening symptoms over the past 6 hours. Pt states that pain is 6/10, was initially intermittent but now is constant, sharp, crushing in nature, radiates to her back, associated with shortness of breath, associated with diaphoresis. Pt Orthopnea/PND, Decreased exercise tolerance. Pt acknowledges prolonged air travel over the past 2 months. Pt denies fever, chills, palpitations, NVD, Trauma, BRBPR, Unintentional weight loss, night sweats, bone pain, productive cough, or recent ill contacts. Pt transported to [facility] by private vehicle. Pt seen and evaluated in ED and found to have symptoms consistent with Angina, as well as Diastolic CHF. Pt admitted to telemetry. cardiology consulted in ED. Past History Past Medical History: diabetes, hypertension, other (Obesity, Hypoventilation) Past Surgical History: cholecystectomy, bowel surgery Social history: , lives with family. denies: smoking, alcohol abuse, prescription drug abuse Family history: diabetes, hypertension Medications and Allergies Allergies Allergy/AdvReac Type Severity Reaction Status Date / Time metronidazole [From Flagyl] AdvReac Hives Verified 09/06/18 17:46 Metronidazole HCl AdvReac Hives Verified 09/06/18 17:46 [From Flagyl] Home Medications Medication Instructions Recorded Confirmed Last Taken Type metFORMIN [Glucophage] 500 mg PO BID 09/29/16 10/18/18 09/29/16 History HYDROcodone/ACETAMINOPHEN [[place] 1 each PO Q8H PRN #8 tablet 12/13/17 10/18/18 Unknown Rx 5-325 Tablet] Promethazine [Phenergan TAB] 25 mg PO Q6HR PRN #12 tab 09/06/18 10/18/18 Unknown Rx Sitagliptin Phosphate [Januvia] 100 mg PO QDAY 10/18/18 10/18/18 Unknown History hydrALAZINE [Apresoline] 25 mg PO QDAY 10/18/18 10/18/18 Unknown History Review of Systems Constitutional: no weight loss, no weight gain, no fever, no chills Ears, nose, mouth and throat: no ear pain, no ear discharge, no tinnitis, no nose pain Breasts: no change in shape, no swelling, no mass Cardiovascular: chest pain, orthopnea, shortness of breath, dyspnea on exertion, paroxysmal nocturnal dyspnea, decreased exercise tolerance, no palpitations, no rapid/irregular heart beat, no syncope Respiratory: no cough, no cough with sputum, no excessive sputum, no hemoptysis Gastrointestinal: no abdominal pain, no nausea, no vomiting, no diarrhea Genitourinary Female: no pelvic pain, no flank pain, no menorrhagia, no dysuria, no urgency Rectal: no pain, no incontinence, no bleeding Musculoskeletal: no neck stiffness, no neck pain, no shooting arm pain, no arm numbness/tingling, no low back pain Integumentary: no rash, no pruritis, no redness, no sores, no wounds Neurological: no transient paralysis, no paralysis, no weakness, no numbness, no seizures Psychiatric: no anxiety, no memory loss, no change in sleep habits, no sleep disturbances, no insomnia, no hypersomnia, no change in appetite Endocrine: no cold intolerance, no heat intolerance, no polyphagia, no excessive thirst, no polydipsia, no polyuria Hematologic/Lymphatic: no easy bruising, no easy bleeding, no lymphadenopathy, no lymphedema Allergic/Immunologic: no urticaria, no allergic rhinitis, no persistent infections, no anaphylaxis Exam - Constitutional Vitals: Temp Pulse Resp BP Pulse Ox 97.7 F 71 16 123/72 98 10/18/18 18:43 10/18/18 19:00 10/18/18 19:02 10/18/18 19:00 10/18/18 19:02 General appearance: Present: mild distress, obese - EENT Eyes: Present: PERRL ENT: hearing intact, clear oral mucosa - Neck Neck: Present: supple, normal ROM - Respiratory Respiratory effort: normal Respiratory: bilateral: CTA - Cardiovascular Heart Sounds: Present: S1 & S2. Absent: rub, click - Extremities Extremity abnormal: edema Peripheral Pulses: within normal limits - Abdominal General gastrointestinal: Present: soft, non-tender, non-distended, normal bowel sounds Female genitourinary: Present: normal - Integumentary Integumentary: Present: clear, warm, dry - Musculoskeletal Musculoskeletal: gait normal, strength equal bilaterally - Psychiatric Psychiatric: appropriate mood/affect, intact judgment & insight - Neurologic Neurologic: CNII-XII intact, moves all extremities Results - Labs CBC & Chem 7: 10/18/18 17:03 10/18/18 17:03 Labs: Abnormal lab results 10/18/18 10/18/18 10/18/18 Range/Units 17:03 17:03 17:31 RBC 5.09 H (3.65-5.03) M/mm3 Hgb 14.4 H (10.1-14.3) gm/dl MCHC 35 H (30-34) % [place] % (Auto) 9.0 H (0.0-7.3) % D-Dimer 270.91 H (0-234) ng/mlDDU Glucose 148 H (65-100) mg/dL Total Protein 6.0 L (6.3-8.2) g/dL Albumin 3.6 L (3.9-5) g/dL Assessment and Plan - Patient Problems (1) Diastolic CHF Current Visit: Yes Status: Suspected Qualifiers: Heart failure chronicity: acute Qualified Code(s): I50.31 - Acute diastolic (congestive) heart failure Plan to address problem: Admit to telemetry, cardiology consulted, Echo, D dimer, bnp, chest x ray, CTA chest, strict I/O, daily weight, afterload reduction, monitor uop q shift, (2) HTN (hypertension) Current Visit: Yes Status: Acute Qualifiers: Hypertension type: essential hypertension Qualified Code(s): I10 - Essential (primary) hypertension Plan to address problem: Monitor BP q shift, continue medical management. (3) Diabetes Current Visit: Yes Status: Acute Plan to address problem: ADA diet, insulin, accu check (4) Obesity hypoventilation syndrome Current Visit: Yes Status: Acute Plan to address problem: supplemental oxygen, nebulizer therapy, NIPPV as clinically indicted. (5) Chest pain Current Visit: Yes Status: Acute Qualifiers: Ischemic chest pain type: stable angina pectoris Plan to address problem: Admit to telemetry, serial cardiac enzymes, ekg, telemetry, stress test, cardiology consulted in ED, morphine, supplemental oxygen, nitro, aspirin, PPI therapy (6) DVT prophylaxis Current Visit: Yes Status: Acute Plan to address problem: SCD to BLE while in bed
[2018-10-18] MEDS ORDERED: TYLENOL PO PRN (19:06)
[2018-10-18] MEDS ORDERED: NITROSTAT SL PRN (19:06)
[2018-10-18] MEDS ORDERED: MORPHINE IV PRN (19:06)
[2018-10-18] MEDS ORDERED: SODIUM CHLORIDE FLUSH SYRINGE 10 ML IV PRN ×2 (19:06)
[2018-10-18] MEDS ORDERED: BABY ASPIRIN PO STA (19:06)
[2018-10-18] MEDS ORDERED: PROVENTIL IH PRN (19:06)
[2018-10-18] MEDS ORDERED: ZOFRAN IV PRN (19:06)
[2018-10-18] MEDS ORDERED: PHENERGAN PO PRN (19:09)
[2018-10-18] MEDS ORDERED: ROBAXIN PO PRN (19:09)
[2018-10-18] MEDS ORDERED: NORCO 5/325 PO PRN (19:09)
[2018-10-18] MEDS ORDERED: D50W (25GM) Syringe IV PRN (19:11)
--- NOTE | 2018-10-18 19:23 | XRay Report ---
PROCEDURE: XR CHEST ROUTINE 2V HISTORY: Chest Pain COMPARISONS: FINDINGS: Single frontal view of the chest was acquired. The heart is normal in size. The lungs appea r clear. The pleura and mediastinum are within normal limits. IMPRESSION: No active disease in the chest This document is electronically signed by Calvin Gordillo MD., October 18 2018 07:21:46 PM ET
[2018-10-18 19:40] LABS: Chol/HDL Ratio 3.9 %
[2018-10-18 20:23] LABS: Bilirubin,Urine NEG (Negative); Blood,Urine NEG (Negative); Color,Urine Yellow (Yellow); Mucus,Urine FEW /HPF; Protein,Urine <15 mg/dL mg/dL (Negative); Urobilinogen,Urine < 2.0 mg/dL (<2.0); WBC,Urine < 1.0 /HPF (0.0-6.0)
--- NOTE | 2018-10-18 20:53 | Cat Scan Report ---
PROCEDURE: CT ANGIOGRAM OF THE CHEST FOR PULMONARY EMBOLISM TECHNIQUE: Computerized axial tomographic angiography of the chest and pulmonary arteries was perfor med after the IV injection of iodinated nonionic contrast. The image data was postprocessed using max imum intensity projection (MIP) and 2-dimensional multiplanar reformatted (MPR) techniques. The exami nation is specifically tailored to the evaluation of the pulmonary arteries per clinical request. Au tomated exposure control, adjustment of mA and/or kV according to patient size, or iterative reconstr uction dose optimization techniques were utilized. CPT G9637, 99091 HISTORY: Shortness of breath R06.02, chest pain unspecified R07.9 , COMPARISONS: None . FINDINGS: Heart and pericardium: Normal. Thoracic aorta: There is no thoracic aortic aneurysm or dissection.. Pulmonary vasculature: Normal. No pulmonary emboli. Lymph nodes: No enlarged thoracic lymph nodes. Lungs: There is suboptimal inspiration. There is no acute infiltrate.. Pleural space: No effusion, thickening, or pneumothorax. Musculoskeletal structures: No significant abnormality. Upper abdominal structures: No significant abnormality. There has been a cholecystectomy. IMPRESSION: There is no pulmonary embolism.. This document is electronically signed by Tank Souza MD., October 18 2018 08:50:15 PM ET
[2018-10-18] MEDS: GENTAMICIN 0.3% OPHTH SOLN OD SCH (21:13)
--- NOTE | 2018-10-18 22:29 | Consultation ---
History of Present Illness Consult date: 10/19/18 Consult reason: congestive heart failure History of present illness: 58 YO Female with HTN, DM, MO, Obesity Hypoventilation presents to ED for ev aluation. Pt states that yesterday she has experienced pain in her chest over the past 1 day with worsening symptoms over the past 6 hours. Pt states that pain is 6/10, was initially intermittent but now is constant, sharp, crushing in nature, radiates to her back, associated with shortness of breath, associated with diaphoresis. Pt denies Orthopnea/PND, palpitations, dizziness or syncope. Past History Past Medical History: diabetes, hypertension, other (Obesity, Hypoventilation) Past Surgical History: cholecystectomy, bowel surgery Social history: , lives with family. denies: smoking, alcohol abuse, prescription drug abuse Family history: diabetes, hypertension Medications and Allergies Allergies Allergy/AdvReac Type Severity Reaction Status Date / Time metronidazole [From Flagyl] AdvReac Hives Verified 09/06/18 17:46 Metronidazole HCl AdvReac Hives Verified 09/06/18 17:46 [From Flagyl] Home Medications Medication Instructions Recorded Confirmed Last Taken Type metFORMIN [Glucophage] 500 mg PO BID 09/29/16 10/18/18 09/29/16 History HYDROcodone/ACETAMINOPHEN [[place] 1 each PO Q8H PRN #8 tablet 12/13/17 10/18/18 Unknown Rx 5-325 Tablet] Promethazine [Phenergan TAB] 25 mg PO Q6HR PRN #12 tab 09/06/18 10/18/18 Unknown Rx Sitagliptin Phosphate [Januvia] 100 mg PO QDAY 10/18/18 10/18/18 Unknown History hydrALAZINE [Apresoline] 25 mg PO QDAY 10/18/18 10/18/18 Unknown History Active Meds: Active Medications Acetaminophen (Tylenol) 650 mg PO Q4H PRN PRN Reason: Pain MILD(1-3)/Fever >100.5/MANDUJANO Acetaminophen/Hydrocodone Bitart ([place] 5/325) 1 each PO Q8H PRN PRN Reason: Pain, Moderate Last Admin: 10/18/18 19:35 Dose: 1 each Documented by: Albuterol (Proventil) 2.5 mg IH Q4H PRN PRN Reason: Shortness Of Breath Dextrose (D50w (25gm) Syringe) 50 ml IV PRN PRN PRN Reason: Hypoglycemia Dicyclomine HCl (Bentyl) 40 mg PO Q8HR [facility] Famotidine (Pepcid) 20 mg PO BID [facility] Gentamicin Sulfate (Gentamicin 0.3% Ophth Soln) 2 drops OD Q4H [facility] Last Admin: 10/18/18 21:13 Dose: Not Given Documented by: Hydralazine HCl (Apresoline) 25 mg PO QDAY [facility] Insulin Human Lispro (Humalog) 0 unit SUB-Q Q6HR [facility]; Protocol Methocarbamol (Robaxin) 500 mg PO BID PRN PRN Reason: Muscle Spasm Morphine Sulfate (Morphine) 2 mg IV Q4H PRN PRN Reason: Pain, Moderate (4-6) Naproxen (Naprosyn) 500 mg PO BID [facility] Nitroglycerin (Nitrostat) 0.4 mg SL Q5M PRN PRN Reason: Chest Pain Ondansetron HCl (Zofran) 4 mg IV Q8H PRN PRN Reason: Nausea And Vomiting Promethazine HCl (Phenergan) 25 mg PO Q6H PRN PRN Reason: Nausea Sodium Chloride (Sodium Chloride Flush Syringe 10 Ml) 10 ml IV BID [facility] Sodium Chloride (Sodium Chloride Flush Syringe 10 Ml) 10 ml IV PRN PRN PRN Reason: LINE FLUSH Triamterene/HCTZ (Maxzide-25) 1 each PO QDAY [facility] Review of Systems All systems: negative Physical Examination Vital Signs Temp Pulse Resp BP Pulse Ox 97.9 F 87 18 145/95 99 10/18/18 16:33 10/18/18 16:33 10/18/18 16:33 10/18/18 16:33 10/18/18 16:33 General appearance: no acute distress HEENT: Positive: PERRL Neck: Positive: neck supple, trachea midline Cardiac: Positive: Reg Rate and Rhythm, S1/S2 Lungs: Positive: Normal Exam Neuro: Positive: Grossly Intact Abdomen: Positive: Soft Extremities: Present: normal Results 10/18/18 17:03 10/19/18 04:31 Cardiac Enzymes 10/18/18 Range/Units 17:03 AST 22 (5-40) units/L Lipids 10/18/18 Range/Units 19:07 Triglycerides 301 H (2-149) mg/dL Cholesterol 156 (50-199) mg/dL HDL Cholesterol 40 (40-59) mg/dL Cholesterol/HDL Ratio 3.90 % CBC 10/18/18 Range/Units 17:03 WBC 8.5 (4.5-11.0) K/mm3 RBC 5.09 H (3.65-5.03) M/mm3 Hgb 14.4 H (10.1-14.3) gm/dl Hct 41.6 (30.3-42.9) % Plt Count 259 (140-440) K/mm3 Lymph # 2.5 (1.2-5.4) K/mm3 [place] # 0.8 (0.0-0.8) K/mm3 Eos # 0.1 (0.0-0.4) K/mm3 Baso # 0.1 (0.0-0.1) K/mm3 Comprehensive Metabolic Panel 10/18/18 Range/Units 17:03 Sodium 141 (137-145) mmol/L Potassium 3.9 (3.6-5.0) mmol/L Chloride 104.2 (98-107) mmol/L Carbon Dioxide 26 (22-30) mmol/L BUN 8 (7-17) mg/dL Creatinine 0.8 (0.7-1.2) mg/dL Glucose 148 H (65-100) mg/dL Calcium 8.6 (8.4-10.2) mg/dL AST 22 (5-40) units/L ALT 20 (7-56) units/L Alkaline Phosphatase 65 (35-129) units/L Total Protein 6.0 L (6.3-8.2) g/dL Albumin 3.6 L (3.9-5) g/dL EKG interpretations - Telemetry EKG Rhythm: Sinus Rhythm (with nonspecific STTW changes) Assessment and Plan (1) Shortness of breath and chest pain torponin negative D dimer elevated but CTA shows no PE Recommend stress test and echo Gentle diuresis as needed (2) HTN (hypertension) Maximize medical therapy. (3) Diabetes Management per primary (4) Obesity hypoventilation syndrome management per primary
[2018-10-18] MEDS: BENTYL PO SCH (22:47)
[2018-10-18] MEDS: PEPCID PO SCH (22:51)
[2018-10-18] MEDS: SODIUM CHLORIDE FLUSH SYRINGE 10 ML IV SCH (22:53)
[2018-10-18] MEDS: NAPROSYN PO SCH (22:54)
[2018-10-19] MEDS: GENTAMICIN 0.3% OPHTH SOLN OD SCH ×6 (01:27→21:47)
[2018-10-19] MEDS: HumaLOG SUB-Q SCH ×4 (01:28→18:27)
[2018-10-19 05:26] LABS: BUN/Creatinine Ratio 11; Blood Urea Nitrogen 8 mg/dL (7-17); Calcium 8.1 mg/dL (8.4-10.2); Hemolysis Index 10
[2018-10-19] MEDS: BENTYL PO SCH ×3 (05:47→21:45)
[2018-10-19] MEDS: APRESOLINE PO SCH (11:08)
[2018-10-19] MEDS: MAXZIDE-25 PO SCH (11:09)
[2018-10-19] MEDS: NAPROSYN PO SCH ×2 (11:09→21:45)
[2018-10-19] MEDS: PEPCID PO SCH ×2 (11:09→21:45)
[2018-10-19] MEDS: SODIUM CHLORIDE FLUSH SYRINGE 10 ML IV SCH ×2 (11:10→21:46)
--- NOTE | 2018-10-19 11:32 | Progress Note ---
Assessment and Plan /Acute Chest pain Monitor to telemetry, serial cardiac enzymes, ekg, telemetry, stress test, cardiology consulted in ED, morphine, supplemental oxygen, nitro, aspirin, PPI therapy / HTN (hypertension) Monitor BP q shift, continue medical management. / Diabetes type 2 ADA diet, insulin, accu check /Obesity hypoventilation syndrome supplemental oxygen, nebulizer therapy, NIPPV as clinically indicted. / DVT prophylaxis SCD to BLE while in bed Subjective Date of service: 10/19/18 Interval history: Patient cont to c/o intermittent chest pain No SOB, troponin normal Objective - Constitutional Vitals: Vital Signs - 12hr 10/18/18 10/19/18 10/19/18 22:55 04:18 09:24 Temperature 97.3 F L 97.4 F L 97.6 F Pulse Rate 79 69 Respiratory 12 16 Rate Blood Pressure 140/76 134/79 O2 Sat by Pulse 96 97 Oximetry 10/19/18 09:26 Temperature Pulse Rate 74 Respiratory 18 Rate Blood Pressure 145/84 O2 Sat by Pulse 94 Oximetry General appearance: Present: no acute distress, obese - EENT Eyes: PERRL, EOM intact ENT: hearing intact, clear oral mucosa Ears: bilateral: normal - Neck Neck: supple, normal ROM - Respiratory Respiratory effort: normal Respiratory: bilateral: CTA - Cardiovascular Rhythm: regular Heart Sounds: Present: S1 & S2. Absent: gallop, rub Extremities: pulses intact, No edema, normal color, Full ROM - Gastrointestinal General gastrointestinal: Present: soft, non-tender, non-distended, normal bowel sounds - Integumentary Integumentary: clear, warm, dry - Musculoskeletal Musculoskeletal: 1, strength equal bilaterally - Neurologic Neurologic: moves all extremities - Psychiatric Psychiatric: memory intact, appropriate mood/affect, intact judgment & insight - Labs CBC & Chem 7: 10/18/18 17:03 10/19/18 04:31 Labs: Abnormal lab results 10/18/18 10/18/18 10/18/18 Range/Units 17:03 17:03 17:31 RBC 5.09 H (3.65-5.03) M/mm3 Hgb 14.4 H (10.1-14.3) gm/dl MCHC 35 H (30-34) % [place] % (Auto) 9.0 H (0.0-7.3) % D-Dimer 270.91 H (0-234) ng/mlDDU Glucose 148 H (65-100) mg/dL Calcium (8.4-10.2) mg/dL Total Protein 6.0 L (6.3-8.2) g/dL Albumin 3.6 L (3.9-5) g/dL Triglycerides (2-149) mg/dL 10/18/18 10/19/18 Range/Units 19:07 04:31 RBC (3.65-5.03) M/mm3 Hgb (10.1-14.3) gm/dl MCHC (30-34) % [place] % (Auto) (0.0-7.3) % D-Dimer (0-234) ng/mlDDU Glucose 106 H (65-100) mg/dL Calcium 8.1 L (8.4-10.2) mg/dL Total Protein (6.3-8.2) g/dL Albumin (3.9-5) g/dL Triglycerides 301 H (2-149) mg/dL
[2018-10-19] MEDS: HumuLIN R SUB-Q SCH ×3 (12:12→21:49)
[2018-10-19] MEDS: ASPIRIN PO SCH (14:17)
[2018-10-20] MEDS: GENTAMICIN 0.3% OPHTH SOLN OD SCH ×4 (00:37→14:56)
[2018-10-20] MEDS: HumaLOG SUB-Q SCH ×5 (00:38→18:00)
[2018-10-20] MEDS: BENTYL PO SCH ×2 (05:19→14:16)
[2018-10-20] MEDS: HumuLIN R SUB-Q SCH ×3 (07:30→18:00)
[2018-10-20] MEDS ORDERED: LEXISCAN IV ONE ×2 (08:17→08:20)
--- NOTE | 2018-10-20 12:08 | Event Note ---
Date: 10/20/18 Patient underwent a stress test during which she exercised for 6 minutes of Carlos protocol, no chest pain and no ST changes. Thallium images pending for final interpretation of this test.
[2018-10-20] MEDS: NAPROSYN PO SCH (14:12)
[2018-10-20] MEDS: MAXZIDE-25 PO SCH (14:12)
[2018-10-20] MEDS: PEPCID PO SCH (14:12)
[2018-10-20] MEDS: ASPIRIN PO SCH (14:12)
[2018-10-20] MEDS: APRESOLINE PO SCH (14:12)
[2018-10-20] MEDS: SODIUM CHLORIDE FLUSH SYRINGE 10 ML IV SCH (14:14)
--- NOTE | 2018-10-20 15:09 | Discharge Summary ---
Providers - Providers Date of Admission: 10/18/18 19:06 Date of discharge: 10/20/18 Attending physician: SANIYA MCKAY 10/18/18 Consult to Cardiac Rehabilitation [CONS] Routine Reason For Exam: Phase I 10/18/18 19:06 Consult to Cardiology [CONS] Routine Consulting Provider: ALKA DAWSON Reason For Exam: chf/chest pain Primary care physician: ZAHRA BEDOYA Hospitalization Condition: Fair Pertinent studies: CXR chest CTA stress test Hospital course: 58 YO Female with HTN, DM, presented to ED for evaluation of chest pain for 1 day, intermittent but then became constant, sharp, crushing in nature, radiates to her back, associated with shortness of breath and diaphoresis. Patient was admitted for further evaluation and management. Discharge diagnosis and management: /Acute Chest pain, likely from GERD stress test was negative, Planned to treat with PPI She will f/u outpt with PCP / HTN (hypertension) Monitored BP q shift, will continue home med for BP / Possible Obesity hypoventilation syndrome Recommended sleep apnea study outpt / Diabetes type 2 managed with ADA diet, insulin, accu check qAcHS / DVT prophylaxis Placed on SCD to BLE while in bed Disposition: DC-01 TO HOME OR SELFCARE Time spent for discharge: 34 minutes Core Measure Documentation - Palliative Care Palliative Care/ Comfort Measures: Not Applicable - Core Measures Any of the following diagnoses?: none Exam - Constitutional Vitals: Temp Pulse Resp BP Pulse Ox 97.8 F 73 16 165/94 95 10/20/18 04:12 10/20/18 13:00 10/20/18 04:12 10/20/18 08:58 10/20/18 04:12 General appearance: Present: no acute distress - EENT Eyes: Present: PERRL ENT: hearing intact, clear oral mucosa - Neck Neck: Present: supple, normal ROM - Respiratory Respiratory effort: normal Respiratory: bilateral: CTA - Cardiovascular Heart Sounds: Present: S1 & S2. Absent: rub, click - Extremities Extremities: pulses symmetrical, No edema Peripheral Pulses: within normal limits - Abdominal General gastrointestinal: Present: soft, non-tender, non-distended, normal bowel sounds - Integumentary Integumentary: Present: clear, warm, dry - Musculoskeletal Musculoskeletal: gait normal, strength equal bilaterally - Psychiatric Psychiatric: appropriate mood/affect, intact judgment & insight - Neurologic Neurologic: CNII-XII intact, moves all extremities Plan Activity: advance as tolerated Weight Bearing Status: Weight Bear as Tolerated Diet: low fat, low salt Follow up with: ZAHRA BEDOYA MD [Primary Care Provider] - 3-5 Days Prescriptions: Pantoprazole [Protonix] 40 mg PO QDAY #30 tablet
[2018-10-20 16:04] VITALS: BP 123/66
--- NOTE | 2018-10-21 01:23 | Treadmill Report ---
THALLIUM STRESS TEST LEFT VENTRICLE: Left ventricular chamber size is within normal spread. Perfusion study demonstrates homogeneous uptake of the tracer in all segments, no significant perfusion defects identified. Gated analysis demonstrates normal left ventricular systolic function, ejection fraction of 63%. CONCLUSION: Normal myocardial perfusion study. JOB# [id number] CA/NTS
== END 2018-10-20 18:45 | disposition home or self-care (01) | DRG 391 ==
LOC: ED 16:22 → 4A 19:06
PROVIDERS: ADMIT Internal Medicine; ATTEND Internal Medicine
DX: K21.9 Gastro-esophageal reflux disease without esophagitis (principal); I50.31 Acute diastolic (congestive) heart failure; E66.2 Morbid (severe) obesity with alveolar hypoventilation; Z68.42 Body mass index [BMI] 45.0-49.9, adult; I11.0 Hypertensive heart disease with heart failure; E11.9 Type 2 diabetes mellitus without complications; Z90.49 Acquired absence of other specified parts of digestive tract; Z83.3 Family history of diabetes mellitus; Z82.49 Family history of ischemic heart disease and other diseases of the circulatory system; Z79.899 Other long term (current) drug therapy; Z72.89 Other problems related to lifestyle; Z98.84 Bariatric surgery status
CPT/HCPCS: 36415; 71046; 71275; 78452; 80048; 80053; 80061; 81001; 82962; 83880; 84484; 85025; 85379; 93005; 93010; 93017; 93306; 96374; 96375; G0378; A9270-GY; A9502; J2405; J2785; J3010; Q9967

== ENCOUNTER 2019-10-22 18:22 | Emergency (ER) | payer MEDICARE ==
[2019-10-22] MEDS ORDERED: IBUPROFEN 600 MG TAB PO ONE (23:14)
[2019-10-22] MEDS ORDERED: ACETAMINOPHEN 500 MG TAB PO ONE (23:14)
--- NOTE | 2019-10-22 23:51 | XRay Report ---
CHEST 2 VIEWS INDICATION / CLINICAL INFORMATION: cough. COMPARISON: 01/03/2014 FINDINGS: SUPPORT DEVICES: None. HEART / MEDIASTINUM: No significant abnormality. LUNGS / PLEURA: No significant pulmonary or pleural abnormality. No pneumothorax. ADDITIONAL FINDINGS: No significant additional findings. IMPRESSION: 1. No acute findings. No interval change. Signer Name: Alessandra Alves MD Signed: 10/22/2019 11:47 PM Workstation Name: [id number]
[2019-10-22 23:55] LABS: Bacteria,Urine 1+ /HPF (Negative); Bilirubin,Urine NEG (Negative); Blood,Urine NEG (Negative); Color,Urine Straw (Yellow); Protein,Urine <15 mg/dL mg/dL (Negative); Urobilinogen,Urine < 2.0 mg/dL (<2.0); WBC,Urine < 1.0 /HPF (0.0-6.0)
[2019-10-22 23:57] LABS: Basophils # (Auto) 0.1 K/mm3 (0.0-0.1); Basophils % (Auto) 1.1 % (0.0-1.8); Eosinophils # (Auto) 0.2 K/mm3 (0.0-0.4); Eosinophils % (Auto) 2.1 % (0.0-4.3); Hematocrit 39.7 % (30.3-42.9); Lymphocytes # (Auto) 2.2 K/mm3 (1.2-5.4); Mean Corpuscular HGB Conc 35 % (30-34); Mean Corpuscular Volume 82 fl (79-97); Monocytes # (Auto) 0.7 K/mm3 (0.0-0.8); Monocytes % (Auto) 9.3 % (0.0-7.3); Platelet Count 279 K/mm3 (140-440); Red Blood Count 4.85 M/mm3 (3.65-5.03); Red Cell Distribution Width 13.3 % (13.2-15.2)
[2019-10-23 00:22] LABS: Alanine Aminotransferase 17 units/L (7-56); BUN/Creatinine Ratio 9; Blood Urea Nitrogen 6 mg/dL (7-17); Calcium 9.3 mg/dL (8.4-10.2); Hemolysis Index 15
[2019-10-23] MEDS ORDERED: POTASSIUM CHLORIDE ER 20 MEQ TAB PO ONE (00:31)
--- NOTE | 2019-10-23 00:36 | Emergency Department Report ---
- General Chief Complaint: Upper Respiratory Infection Stated Complaint: WEAKNESS/SOB Source: patient Mode of arrival: Ambulatory Limitations: No Limitations - History of Present Illness Initial Comments: Patient is a 59-year-old female with a history of hypertension and [id number]-[id number] diabetes who presents to the ED with complaint of acute onset persistent severe diffuse body aches and pains, nasal and sinus congestion, frontal sinus headache, dry cough intermittently and lack of appet ite and ulcerated oral lesions for the last 4 days. Patient denies dizziness, fever, chills, nausea, vomiting, diarrhea, abdominal pain, chest pain, shortness of breath, dysuria, urinary frequency and urgency or sore throat. Patient states that she has been taking [id number]-sez-[id number] medication with no relief. MD Complaint: cough, rhinorrhea, nasal congestion, sinus pain -: Sudden, days(s) (4) Severity: moderate Severity scale (0 -10): 5 Quality: sharp, aching Consistency: constant Improves With: nothing Worsens With: nothing Associated Symptoms: denies other symptoms, myalgias, headache, rhinorrhea, nasal congestion, cough, rash (Oral ulcerated lesions). denies: fever, chills, diaphoresis, stiff neck, chest pain, shortness of breath, abdominal pain, nausea, vomiting, diarrhea, dysuria, confusion, epistaxis, hoarseness, ear pain Treatments Prior to Arrival: none - Related Data Home Medications Medication Instructions Recorded Confirmed Last Taken metFORMIN [Glucophage] 500 mg PO BID 09/29/16 10/18/18 09/29/16 Sitagliptin Phosphate [Januvia] 100 mg PO QDAY 10/18/18 10/18/18 Unknown hydrALAZINE [Apresoline TAB] 25 mg PO QDAY 10/18/18 10/18/18 Unknown Previous Rx's Medication Instructions Recorded Last Taken Type HYDROcodone/ACETAMINOPHEN [[place] 1 each PO Q8H PRN #8 tablet 12/13/17 Unknown Rx 5-325 Tablet] Promethazine [Phenergan] 25 mg PO Q6HR PRN #12 tab 09/06/18 Unknown Rx Pantoprazole [Protonix] 40 mg PO QDAY #30 tablet 10/20/18 Unknown Rx Amoxicillin/Potassium Clav 1 each PO Q12H #20 tablet 10/23/19 Unknown Rx [Augmentin 875-125 Tablet] Benzonatate [Tessalon Perles] 100 mg PO Q8HR #30 capsule 10/23/19 Unknown Rx Butalb/Acetamin/Caff 50-325-40 1 - 2 tab PO Q6HR PRN #12 tab 10/23/19 Unknown Rx [Fioricet 50-325-40] Ibuprofen [Motrin] 800 mg PO Q8HR PRN #30 tablet 10/23/19 Unknown Rx Allergies Allergy/AdvReac Type Severity Reaction Status Date / Time metronidazole [From Flagyl] AdvReac Hives Verified 09/06/18 17:46 Metronidazole HCl AdvReac Hives Verified 09/06/18 17:46 [From Flagyl] ED Review of Systems ROS: Stated complaint: WEAKNESS/SOB Other details as noted in HPI Constitutional: denies: chills, fever Eyes: denies: eye pain, eye discharge, vision change ENT: congestion. denies: ear pain, throat pain Respiratory: cough. denies: shortness of breath, wheezing Cardiovascular: denies: chest pain, palpitations Endocrine: no symptoms reported Gastrointestinal: denies: abdominal pain, nausea, diarrhea Genitourinary: denies: urgency, dysuria, discharge Musculoskeletal: back pain, arthralgia, myalgia. denies: joint swelling Skin: rash (oral ulcerated lesions). denies: lesions Neurological: headache. 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 - Surgical History Past Surgical History?: Yes Hx Cholecystectomy: Yes Additional Surgical History: fistula surgery, hemorrhoidectomy, lap band surgery, titanium plate and 9 screws placed in L arm 2005 - Social History Smoking Status: Never Smoker Substance Use Type: None - Medications Home Medications: Home Medications Medication Instructions Recorded Confirmed Last Taken Type metFORMIN [Glucophage] 500 mg PO BID 09/29/16 10/18/18 09/29/16 History HYDROcodone/ACETAMINOPHEN [[place] 1 each PO Q8H PRN #8 tablet 12/13/17 10/18/18 Unknown Rx 5-325 Tablet] Promethazine [Phenergan] 25 mg PO Q6HR PRN #12 tab 09/06/18 10/18/18 Unknown Rx Sitagliptin Phosphate [Januvia] 100 mg PO QDAY 10/18/18 10/18/18 Unknown History hydrALAZINE [Apresoline TAB] 25 mg PO QDAY 10/18/18 10/18/18 Unknown History Pantoprazole [Protonix] 40 mg PO QDAY #30 tablet 10/20/18 Unknown Rx Amoxicillin/Potassium Clav 1 each PO Q12H #20 tablet 10/23/19 Unknown Rx [Augmentin 875-125 Tablet] Benzonatate [Tessalon Perles] 100 mg PO Q8HR #30 capsule 10/23/19 Unknown Rx Butalb/Acetamin/Caff 50-325-40 1 - 2 tab PO Q6HR PRN #12 tab 10/23/19 Unknown Rx [Fioricet 50-325-40] Ibuprofen [Motrin] 800 mg PO Q8HR PRN #30 tablet 10/23/19 Unknown Rx ED Physical Exam - General Limitations: No Limitations General appearance: alert, in no apparent distress - Head Head exam: Present: atraumatic, normocephalic, normal inspection - Eye Eye exam: Present: normal appearance, PERRL, EOMI Pupils: Present: normal accommodation - ENT ENT exam: Present: mucous membranes moist, TM's normal bilaterally, normal external ear exam, other (Palpable frontal sinus tenderness; ulcerated oral lesions) - Neck Neck exam: Present: normal inspection, full ROM. Absent: tenderness, meningismus, lymphadenopathy - Respiratory Respiratory exam: Present: normal lung sounds bilaterally. Absent: respiratory distress, wheezes, rales, chest wall tenderness, accessory muscle use, prolonged expiratory - Cardiovascular Cardiovascular Exam: Present: regular rate, normal rhythm, normal heart sounds. Absent: systolic murmur, diastolic murmur, rubs, gallop - GI/Abdominal GI/Abdominal exam: Present: soft, normal bowel sounds. Absent: guarding, hyperactive bowel sounds, hypoactive bowel sounds - Extremities Exam Extremities exam: Present: normal inspection, full ROM, normal capillary refill - Back Exam Back exam: Present: normal inspection, full ROM. Absent: tenderness, muscle spasm, paraspinal tenderness, vertebral tenderness - Neurological Exam Neurological exam: Present: alert, oriented X3, CN II-XII intact, normal gait, reflexes normal - Psychiatric Psychiatric exam: Present: normal affect, normal mood - Skin Skin exam: Present: warm, dry, intact, normal color, rash (Ulcerated oral lesions), vesicles ED Course Vital Signs 10/22/19 19:48 Temperature 98.3 F Pulse Rate 89 Respiratory 18 Rate Blood Pressure 183/91 O2 Sat by Pulse 98 Oximetry ED Medical Decision Making - Lab Data Result diagrams: 10/22/19 23:27 10/22/19 23:27 - Radiology Data Radiology results: report reviewed, image reviewed Chest x-ray shows no acute cardiopulmonary abnormalities or pneumonitis. - Medical Decision Making This is a 59-year-old female who presented to the ED with nasal and sinus congestion, frontal sinus pressure and headache, diffuse body aches and pains, persistent dry cough for the last 4 days. In the ED, patient is alert and oriented x3 and is not in any distress, afebrile and present in triage. Patient was treated for pain in the ED and lab test results were reviewed and are all nonactionable except for mild hypokalemia of 3.2 mmol/L. Chest x-ray shows no acute cardiopulmonary abnormalities or pneumonitis. On reevaluation, patient's pain is well controlled with medications. Patient will discharge home on medications and was advised to follow-up with her primary care physician in 7 to 10 days for reevaluation. Patient was advised to return to the ED immediately if symptoms get worse. - Differential Diagnosis URI; BRONCHITIS; PNEUMONIA; SINUSITIS; UTI Critical care attestation.: If time is entered above; I have spent that time in minutes in the direct care of this critically ill patient, excluding procedure time. ED Disposition Clinical Impression: Sinus headache, Flu-like symptoms, Acute viral syndrome Acute frontal sinusitis Qualifiers: Recurrence: non-recurrent Qualified Code(s): J01.10 - Acute frontal sinusitis, unspecified Disposition: -01 TO HOME OR SELFCARE Is pt being admited?: No Does the pt Need Aspirin: No Condition: Stable Instructions: Acute Bacterial Rhinosinusitis (ED), Acute Headache (ED) Additional Instructions: All lab test results are unremarkable including chest x-ray. Your symptoms are likely due to sinusitis. Therefore take medication as advised, drink plenty of fluids and follow-up with your primary care physician in 7 to 10 days for reevaluation. Return to the ED immediately if symptoms get worse. Prescriptions: Amoxicillin/Potassium Clav [Augmentin 875-125 Tablet] 1 each PO Q12H #20 tablet Butalb/Acetamin/Caff 50-325-40 [Fioricet 50-325-40] 1 - 2 tab PO Q6HR PRN #12 tab PRN Reason: Headache Ibuprofen [Motrin] 800 mg PO Q8HR PRN #30 tablet PRN Reason: Pain , Severe (7-10) Benzonatate [Tessalon Perles] 100 mg PO Q8HR #30 capsule Referrals: ZAHRA BEDOYA MD [Primary Care Provider] - 3-5 Days Time of Disposition: 00:38 Print Language: LATVIAN
[2019-10-23 02:39] VITALS: BP 158/89
== END 2019-10-23 01:10 | disposition home or self-care (01) ==
LOC: ED 18:22
DX: J01.10 Acute frontal sinusitis, unspecified (principal); R05 Cough; B34.9 Viral infection, unspecified; I10 Essential (primary) hypertension; E11.9 Type 2 diabetes mellitus without complications; Z98.890 Other specified postprocedural states; Z90.49 Acquired absence of other specified parts of digestive tract; Z79.1 Long term (current) use of non-steroidal anti-inflammatories (NSAID); Z79.2 Long term (current) use of antibiotics; Z79.899 Other long term (current) drug therapy; Z88.8 Allergy status to other drugs, medicaments and biological substances
CPT/HCPCS: 36415; 71046; 80053; 81001; 85025

== ENCOUNTER 2020-08-15 09:35 | Observation (INO) | payer MEDICARE ==
--- NOTE | 2020-08-15 09:46 | Emergency Department Report ---
Blank Doc - Documentation Documentation: 60-year-old female has a history of hypertension and diabetes and multiple com plaining of 1 hour history of chest pain associated with dizziness dull pressure and abdominal pain with no nausea vomiting. Reports no fever, chills, sweats but just got over Covid this past weekend family testing negative after being positive for the last several days. This initial assessment/diagnostic orders/clinical plan/treatment(s) is/are subject to change based on patients health status, clinical progression and re- assessment by fellow clinical providers in the ED. Further treatment and workup at subsequent clinical providers discretion. Patient/guardian urged not to elope from the ED as their condition may be serious if not clinically assessed and managed. Initial orders include: Labs, x-ray, EKG
[2020-08-15 09:48] VITALS: BP 187/119
[2020-08-15 10:16] LABS: Basophils # (Auto) 0.1 K/mm3 (0.0-0.1); Eosinophils % (Auto) 0.1 % (0.0-4.3); Hematocrit 40.9 % (30.3-42.9); Hemoglobin 14.1 gm/dl (10.1-14.3); Lymphocytes # (Auto) 1.7 K/mm3 (1.2-5.4); Lymphocytes % (Auto) 20.8 % (13.4-35.0); Mean Corpuscular HGB Conc 34 % (30-34); Mean Corpuscular Volume 83 fl (79-97); Monocytes # (Auto) 0.8 K/mm3 (0.0-0.8); Monocytes % (Auto) 10.3 % (0.0-7.3); Platelet Count 370 K/mm3 (140-440); Red Blood Count 4.93 M/mm3 (3.65-5.03); Red Cell Distribution Width 14.1 % (13.2-15.2)
--- NOTE | 2020-08-15 10:26 | XRay Report ---
CHEST 2 VIEWS INDICATION: Chest Pain. COMPARISON: 10/22/2019 FINDINGS: Support devices: None. Heart: Within normal limits. Lungs/pleura: No acute air space or interstitial disease. No pneumothorax. Additional findings: None. IMPRESSION: No acute findings. Signer Name: Paulino Osei Jr, MD Signed: 08/15/2020 10:21 AM Workstation Name: [id number]
[2020-08-15 10:40] LABS: Alanine Aminotransferase 18 units/L (7-56); Blood Urea Nitrogen 13 mg/dL (7-17); Calcium 9.5 mg/dL (8.4-10.2); Hemolysis Index 7
[2020-08-15 10:43] LABS: BUN/Creatinine Ratio 19
[2020-08-15] MEDS ORDERED: FAMOTIDINE 20 MG TAB PO ONE (14:19)
[2020-08-15] MEDS ORDERED: ACETAMINOPHEN 500 MG TAB PO ONE (14:19)
[2020-08-15] MEDS ORDERED: NITROGLYCERIN 0.4 MG TAB SUBL SL PRN (14:19)
[2020-08-15] MEDS ORDERED: amLODIPine 5 MG TAB PO ONE (14:20)
--- NOTE | 2020-08-15 14:20 | Emergency Department Report ---
ED General Adult HPI - General Chief complaint: Chest Pain Stated complaint: CHEST PAIN,ABD PAIN,EAR PAIN,DIZZINESS PUI?: No Time Seen by Provider: 08/15/20 14:04 Source: patient, RN notes reviewed, old records reviewed Mode of arrival: Ambulatory Limitations: No Limitations - History of Present Illness Initial comments: The patient was evaluated in the emergency department for symptoms described in the history of present illness. He/she was evaluated in the context of the global COVID-19 pandemic, which necessitated consideration that the patient might be at risk for infection with the virus that causes COVID-19. Instit utional protocols and algorithms that pertain to the evaluation of patients at risk for COVID-19 are in a state of rapid change based on information released by regulatory bodies including the CDC and federal and state organizations. These policies and algorithms were followed during the patient's care in the emergency department. Please note that these policies, procedures and recommendations changed on a rapid basis. The patient is a 60-year-old female. Her past medical history includes di abetes, hypertension, possibly high cholesterol. Also has past medical history of esophagitis. In 2019, had a negative cardiac stress test, and negative CT angiogram of the chest for pulmonary embolism. Today, the patient presents to the ER with multiple complaints. Patient states that she felt like she was in her typical state of health while she was having food with her significant other this morning, when she developed chest pain, abdominal pain, and bilateral otic ear discomfort. She states her chest pain is central, left-sided and right-sided. Does not radiate to the back, arms or neck. No vomiting. No diaphoresis. Uncertain if recent aspirin consumption. The chest pain is intermittent for the past few hours. Denies travel, surgery, oral contraceptive use, leg pain or leg swelling. Abdominal pain is epigastric, intermittent, basically resolved. Also describes bilateral ear pressure, with ringing, without significant pain, associated with headache, not sudden or thunderclap in nature, not maximal in intensity, not the worst headache of her life, without neck pain and neck stiffness. Also endorses binocular blurry vision/"feels like my vision is off", and a sensation of dizziness, which she describes as "it feels like him drunk, but I have not consumed any alcohol." The blurry vision, sensation of dizziness and feeling off balance are present for approximately 1 week. Patient states that she had a negative outpatient Covid test recently. -: Sudden, hour(s), days(s), week(s) (1) Location: head, chest, abdomen Radiation: non-radiation Quality: aching Consistency: intermittent Improves with: none Worsens with: none - Related Data Home Medications Medication Instructions Recorded Confirmed Last Taken metFORMIN [Glucophage] 500 mg PO BID 09/29/16 10/18/18 09/29/16 Sitagliptin Phosphate [Januvia] 100 mg PO QDAY 10/18/18 10/18/18 Unknown hydrALAZINE [Apresoline TAB] 25 mg PO QDAY 10/18/18 10/18/18 Unknown Previous Rx's Medication Instructions Recorded Last Taken Type HYDROcodone/ACETAMINOPHEN [[place] 1 each PO Q8H PRN #8 tablet 12/13/17 Unknown Rx 5-325 Tablet] Promethazine [Phenergan] 25 mg PO Q6HR PRN #12 tab 09/06/18 Unknown Rx Pantoprazole [Protonix] 40 mg PO QDAY #30 tablet 10/20/18 Unknown Rx Amoxicillin/Potassium Clav 1 each PO Q12H #20 tablet 10/23/19 Unknown Rx [Augmentin 875-125 Tablet] Benzonatate [Tessalon Perles] 100 mg PO Q8HR #30 capsule 10/23/19 Unknown Rx Butalb/Acetamin/Caff 50-325-40 1 - 2 tab PO Q6HR PRN #12 tab 10/23/19 Unknown Rx [Fioricet 50-325-40] Ibuprofen [Motrin] 800 mg PO Q8HR PRN #30 tablet 10/23/19 Unknown Rx Allergies Allergy/AdvReac Type Severity Reaction Status Date / Time metronidazole [From Flagyl] AdvReac Hives Verified 09/06/18 17:46 Metronidazole HCl AdvReac Hives Verified 09/06/18 17:46 [From Flagyl] ED Review of Systems ROS: Stated complaint: CHEST PAIN,ABD PAIN,EAR PAIN,DIZZINESS Other details as noted in HPI Constitutional: malaise, weakness. denies: fever Eyes: vision change. denies: eye pain, eye discharge ENT: denies: congestion Respiratory: denies: cough Cardiovascular: chest pain Gastrointestinal: abdominal pain Genitourinary: denies: dysuria Musculoskeletal: denies: back pain Neurological: headache, weakness, abnormal gait. denies: numbness, paresthesias, vertigo Psychiatric: anxiety Hematological/Lymphatic: denies: easy bleeding ED Past Medical Hx - Past Medical History Previous Medical History?: Yes Hx Hypertension: Yes Hx Congestive Heart Failure: No Hx Diabetes: Yes Hx Asthma: No Hx COPD: No Additional medical history: 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 - Surgical History Past Surgical History?: Yes Hx Cholecystectomy: Yes Additional Surgical History: fistula surgery, hemorrhoidectomy, lap band surgery, titanium plate and 9 screws placed in L arm 2006 - Social History Smoking Status: Never Smoker Substance Use Type: None - Medications Home Medications: Home Medications Medication Instructions Recorded Confirmed Last Taken Type metFORMIN [Glucophage] 500 mg PO BID 09/29/16 10/18/18 09/29/16 History HYDROcodone/ACETAMINOPHEN [[place] 1 each PO Q8H PRN #8 tablet 12/13/17 10/18/18 Unknown Rx 5-325 Tablet] Promethazine [Phenergan] 25 mg PO Q6HR PRN #12 tab 09/06/18 10/18/18 Unknown Rx Sitagliptin Phosphate [Januvia] 100 mg PO QDAY 10/18/18 10/18/18 Unknown History hydrALAZINE [Apresoline TAB] 25 mg PO QDAY 10/18/18 10/18/18 Unknown History Pantoprazole [Protonix] 40 mg PO QDAY #30 tablet 10/20/18 Unknown Rx Amoxicillin/Potassium Clav 1 each PO Q12H #20 tablet 10/23/19 Unknown Rx [Augmentin 875-125 Tablet] Benzonatate [Tessalon Perles] 100 mg PO Q8HR #30 capsule 10/23/19 Unknown Rx Butalb/Acetamin/Caff 50-325-40 1 - 2 tab PO Q6HR PRN #12 tab 10/23/19 Unknown Rx [Fioricet 50-325-40] Ibuprofen [Motrin] 800 mg PO Q8HR PRN #30 tablet 10/23/19 Unknown Rx ED Physical Exam - General Limitations: No Limitations General appearance: alert, in no apparent distress - Head Head exam: Present: atraumatic, normocephalic - Eye Eye exam: Present: normal appearance, PERRL, EOMI, other (Visual acuity intact to finger counting, color perception, reading at a close distance). Absent: nystagmus - ENT ENT exam: Present: normal exam, normal orophraynx, mucous membranes moist, TM's normal bilaterally, normal external ear exam, other (There is no mastoid tenderness.) - Neck Neck exam: Present: normal inspection, full ROM. Absent: tenderness, meningismus - Respiratory Respiratory exam: Present: normal lung sounds bilaterally, chest wall tenderness. Absent: respiratory distress, wheezes, rales, rhonchi, stridor, decreased breath sounds - Cardiovascular Cardiovascular Exam: Present: regular rate, normal rhythm, normal heart sounds. Absent: bradycardia, tachycardia, irregular rhythm, systolic murmur, diastolic murmur, rubs, gallop - GI/Abdominal GI/Abdominal exam: Present: soft, normal bowel sounds. Absent: distended, tenderness, guarding, rebound, rigid, pulsatile mass - Extremities Exam Extremities exam: Present: normal inspection, full ROM, other (2+ pulses noted in the bilateral upper and lower extremities. There is no palpable cord. negative Homans sign. Muscular compartments are soft. The pelvis is stable.). Absent: pedal edema, calf tenderness - Back Exam Back exam: Present: normal inspection, full ROM. Absent: tenderness, CVA tenderness (R), CVA tenderness (L), paraspinal tenderness, vertebral tenderness - Neurological Exam Neurological exam: Present: alert, oriented X3, abnormal gait (The patient walks with a steady gait. However, she has a positive Romberg examination, and is not able to tolerate tandem gait), other (No facial droop. Tongue midline. Extraocular movements intact bilaterally. Facial sensation intact to light touch in V1, V2, V3 distribution bilaterally. 5 and a 5 strength in 4 extremities. Sensation intact to light touch in 4 extremities.). Absent: motor sensory deficit - Psychiatric Psychiatric exam: Present: anxious - Skin Skin exam: Present: warm, dry, intact, normal color. Absent: rash ED Course Vital Signs 08/15/20 08/15/20 09:47 14:59 Temperature 97.9 F Pulse Rate 80 Respiratory 16 18 Rate Blood Pressure 187/119 [Right] O2 Sat by Pulse 99 Oximetry - Reevaluation(s) Reevaluation #1: 08/15/20 16:04 Differential diagnosis, including but not limited to: GERD, gastritis, hiatal hernia, pneumonia, acute coronary syndrome, subacute stroke, venous sinus thrombosis, normal pressure hydrocephalus Assessment and plan: 60-year-old female with multiple complaints. Complaints #1, chest pain. EKG unchanged from prior. Troponin negative x1. Not currently tachycardic, tachypneic or hypoxic, denies pulmonary embolism and DVT risk factors, low risk by Wells criteria, however, moderate risk for major adverse cardiac event as per heart score, less cardiac risk ratification was 10 months ago. Admission is recommended for accelerated cardiac risk stratification. Place patient on tentering machine off bearer, treat symptoms, administer aspirin. Complaint #2, abdominal pain. Patient has a documented history of esophagitis. Abdomen soft and benign, without rebound, guarding or peritoneal signs. Lab oratory studies reviewed and nonactionable in terms of abdominal pathology, do not see indication for advanced imaging at this time. X-ray of the chest unremarkable, equal pulses in the upper and lower extremities, no pulsatile abdominal mass, do not suspect aortic pathology. Complaints #3, Ear discomfort Physical exam of the bilateral head and neck structures is unremarkable. No carotid bruit, hematoma, pulsatility, no mastoid tenderness, unremarkable cranial nerve exam. Outpatient follow-up, as needed Tylenol. Complaint #4, headache, sensation of dizziness, blurry vision. Symptoms present x1 week. GCS 15, NIH score of 0. Exam not consistent with large vessel occlusion. However, given history, cardiovascular risk factors, subacute stroke is a possibility. Patient had positive Romberg examination, and was not able to tolerate tandem gait. Not a TPA candidate given the aforementioned, noncontrast CT scan of the brain obtained, negative for acute pathology, neurology consultation is reviewed and appreciated. Visual acuity intact to finger counting, color perception, reading at a close distance, no visual field cuts noted on direct confrontation, pupils equally reactive to light bilaterally, without direct or consensual photophobia. There is no complaint of ocular pain. Treat patient's symptoms, admission recommended to obtain MRI to exclude subacute stroke, and venous sinus thrombosis. Patient had a negative Covid test, as an outpatient by her history, after initially testing positive, however, Covid is prothrombotic, and does place the patient at risk for venous sinus thrombosis. Therefore, we will give aspirin, patient is endorsed to the hospital physician, Dr. Eladia Hidalgo If subacute stroke and venous sinus thrombosis excluded, as per discussion with consulting neurology, Dr. Zamorano, Outpatient follow-up for urgent dilated posterior chamber exam/endoscopy may be considered. However, patient does not require emergent funduscopic examination, or emergent ophthalmologic consultation at this time. 08/15/20 16:09 ED Medical Decision Making - Lab Data Result diagrams: 08/15/20 09:57 08/15/20 09:57 Vital Signs 08/15/20 08/15/20 09:47 14:59 Temperature 97.9 F Pulse Rate 80 Respiratory 16 18 Rate Blood Pressure 187/119 [Right] O2 Sat by Pulse 99 Oximetry Lab Results 08/15/20 08/15/20 08/15/20 Range/Units 09:57 09:57 09:57 WBC 8.2 (4.5-11.0) K/mm3 RBC 4.93 (3.65-5.03) M/mm3 Hgb 14.1 (10.1-14.3) gm/dl Hct 40.9 (30.3-42.9) % MCV 83 (79-97) fl MCH 29 (28-32) pg MCHC 34 (30-34) % RDW 14.1 (13.2-15.2) % Plt Count 370 (140-440) K/mm3 Lymph % (Auto) 20.8 (13.4-35.0) % [place] % (Auto) 10.3 H (0.0-7.3) % Eos % (Auto) 0.1 (0.0-4.3) % Baso % (Auto) 1.0 (0.0-1.8) % Lymph # (Auto) 1.7 (1.2-5.4) K/mm3 [place] # (Auto) 0.8 (0.0-0.8) K/mm3 Eos # (Auto) 0.0 (0.0-0.4) K/mm3 Baso # (Auto) 0.1 (0.0-0.1) K/mm3 Seg Neutrophils % 67.8 (40.0-70.0) % Seg Neutrophils # 5.6 (1.8-7.7) K/mm3 Sodium 136 L (137-145) mmol/L Potassium 3.7 (3.6-5.0) mmol/L Chloride 97.3 L (98-107) mmol/L Carbon Dioxide 33 H (22-30) mmol/L Anion Gap 9 mmol/L BUN 13 (7-17) mg/dL Creatinine 0.7 (0.6-1.2) mg/dL Estimated GFR > 60 ml/min BUN/Creatinine Ratio 19 % Glucose 112 H (65-100) mg/dL Calcium 9.5 (8.4-10.2) mg/dL Magnesium (1.7-2.3) mg/dL Total Bilirubin 0.40 (0.1-1.2) mg/dL AST 18 (5-40) units/L ALT 18 (7-56) units/L Alkaline Phosphatase 73 (35-129) units/L Total Creatine Kinase (30-135) units/L Troponin T < 0.010 (0.00-0.029) ng/mL Total Protein 8.0 (6.3-8.2) g/dL Albumin 4.0 (3.9-5) g/dL Albumin/Globulin Ratio 1.0 % Lipase 35 (13-60) units/L HCG, Qual Negative (Negative) 08/15/20 Range/Units 14:51 WBC (4.5-11.0) K/mm3 RBC (3.65-5.03) M/mm3 Hgb (10.1-14.3) gm/dl Hct (30.3-42.9) % MCV (79-97) fl MCH (28-32) pg MCHC (30-34) % RDW (13.2-15.2) % Plt Count (140-440) K/mm3 Lymph % (Auto) (13.4-35.0) % [place] % (Auto) (0.0-7.3) % Eos % (Auto) (0.0-4.3) % Baso % (Auto) (0.0-1.8) % Lymph # (Auto) (1.2-5.4) K/mm3 [place] # (Auto) (0.0-0.8) K/mm3 Eos # (Auto) (0.0-0.4) K/mm3 Baso # (Auto) (0.0-0.1) K/mm3 Seg Neutrophils % (40.0-70.0) % Seg Neutrophils # (1.8-7.7) K/mm3 Sodium (137-145) mmol/L Potassium (3.6-5.0) mmol/L Chloride (98-107) mmol/L Carbon Dioxide (22-30) mmol/L Anion Gap mmol/L BUN (7-17) mg/dL Creatinine (0.6-1.2) mg/dL Estimated GFR ml/min BUN/Creatinine Ratio % Glucose (65-100) mg/dL Calcium (8.4-10.2) mg/dL Magnesium 2.00 (1.7-2.3) mg/dL Total Bilirubin (0.1-1.2) mg/dL AST (5-40) units/L ALT (7-56) units/L Alkaline Phosphatase (35-129) units/L Total Creatine Kinase 57 (30-135) units/L Troponin T < 0.010 (0.00-0.029) ng/mL Total Protein (6.3-8.2) g/dL Albumin (3.9-5) g/dL Albumin/Globulin Ratio % Lipase (13-60) units/L HCG, Qual (Negative) - EKG Data -: EKG Interpreted by Nv EKG shows normal: sinus rhythm Rate: normal - EKG Data Interpretation: unchanged when compared t (October 2018) 08/15/20 16:03 Sinus rhythm, 71 bpm, left axis deviation, left anterior fascicular block, incomplete right bundle branch block, borderline left ventricular hypertrophy, abnormal EKG, not a STEMI. - Radiology Data Radiology results: pending, report reviewed, image reviewed Noncontrast CT scan of the brain is negative for acute disease. X-ray of the chest is negative for acute disease. Critical care attestation.: If time is entered above; I have spent that time in minutes in the direct care of this critically ill patient, excluding procedure time. ED Disposition Clinical Impression: Acute chest pain, Epigastric abdominal pain, Unsteady gait, Blurry vision, Headache HTN (hypertension) Qualifiers: Hypertension type: essential hypertension Qualified Code(s): I10 - Essential (primary) hypertension Disposition: OP ADMIT IP TO THIS HOSP Is pt being admited?: Yes Does the pt Need Aspirin: Yes Condition: Stable Instructions: Chest Pain (ED), Hypertension (ED) Referrals: PRIMARY CARE, [Primary Care Provider] - 3-5 Days KYREE score - Kyree Score Age > 65: (0) No Aspirin use within the Past 7 Days: (0) No 3 or more CAD Risk Factors: (1) Yes 2 or more Angina events in past 24 hrs: (0) No Known CAD with more than 50% Stenosis: (0) No Elevated Cardiac Markers: (0) No ST Deviation Greater than 0.5mm: (0) No KYREE Score: 1 Heart Score - HEART Score History: Slightly suspicious EKG: Non-specific Age: 45-65 Risk factors: > 3 risk factors or hx of atherosclerotic disease Troponin: < normal limit HEART Score: 4 - Critical Actions Critical Actions: 4-6 pts:12-16.6% risk of adverse cardiac event. Should be admitted - Level of Consciousness 1a. Level of Consciousness: alert/keenly responsive - LOC Questions 1b. LOC Questions: answers both correctly - LOC Command 1c. LOC Commands: performs tasks correctly - Best Gaze 2. Best Gaze: normal - Visual 3. Visual: no visual loss - Facial Palsy 4. Facial Palsy: normal symmetrical movement - Motor Arm 5a. Motor Arm Left: no drift 5b. Motor Arm Right: no drift - Motor Leg 6a. Motor Leg Left: no drift 6b. Motor Leg Right: no drift - Limb Ataxia 7. Limb Ataxia: absent - Sensory 8. Sensory: normal - Best Language 9. Best Language: no aphasia - Dysarthria 10. Dysarthria: normal - Extinction and Inattention 11. Extinction/Inattention: no abnormality - Scoring Total Score: 0 Stroke Severity: No Stroke Symptoms
--- NOTE | 2020-08-15 15:14 | Cat Scan Report ---
CT head/brain wo con INDICATION: Headache and blurry vision. TECHNIQUE: Routine CT head without contrast. All CT scans at this location are performed using CT dos e reduction for ALARA by means of automated exposure control. COMPARISON: None. FINDINGS: BRAIN / INTRACRANIAL CONTENTS: No acute hemorrhage, mass effect, midline shift, or hydrocephalus. No appreciable acute large territorial or lacunar infarct. No chronic infarct or focal atrophy. Normal b rain volume and ventricular/sulcal size for age. ORBITS: No significant abnormality of visualized orbits. SINUSES / MASTOIDS: No significant abnormality of visualized sinuses and mastoid air cells. ADDITIONAL FINDINGS: None. IMPRESSION: 1. No acute intracranial abnormality. Signer Name: Ron Wisdom MD Signed: 08/15/2020 3:09 PM Workstation Name: [id number]
--- NOTE | 2020-08-15 15:55 | Consultation ---
History of Present Illness History of present illness: [facility] Tele[facility] Consult Services Stat Consult Date of Service: 08/15/2020 14:23:32 Impression: R42 - Dizziness/ Vertigo/ Giddiness Comments/Sign-Out: with nonspecific subjective unsteadiness, near syncope in backdrop of COVID positive status since 07/16 with now headache, chest/abdominal pain. Exam is completely intact/nonfocal. She is afebrile without nuchal rigidity. This is not suggestive of a structural brain process including infarct/ischemia nor BUYER LIAISON infection. I suspect these are symptoms secondary to a larger medical process, which is outside my scope to evaluate. Evaluation for inner ear infection, more generalized ongoing infectious process and checking for orthostasis may be prudent. Evaluation for papilledema may be indicated. If no generalized medical process is found, could consider eval for sinus venous thrombosis. CT HEAD: Showed No Acute Hemorrhage or Acute Core Infarct Metrics: [facility] Notification Time: 08/15/2020 14:22:55 Stamp Time: 08/15/2020 14:23:32 Callback Response Time: 08/15/2020 14:27:58 Our recommendations are outlined below. Recommendations: defer to primary team for further medical eval if no medical etiology found, can consider MRI/V brain without contrast; if this is negative and ability to do funduscopic exam is limited, should also refer to optometry/opthalmology within the week-- if there is papilledema in this setting she would require LP to eval for peudotumor cerebri. Disposition: inpatient neuro consult if MRI abnormal Sign Out: Discussed with Emergency Department Provider Chief Complaint: dizzy, unsteady, headache History of Present Illness: Patient is a 60 year old Female. presents for constant blurry vision in both constantly eyes for over one week, one week of "feeling lightheaded/dizzy...like I might pass out...unsteady on my feet, nauseated" then headache, pain in both ears, stomach and chest pain noted today. This occurs in setting of COVID infection since 07/16/2020. She denies visual field cut, double vision, focal weakness/numbness, vertigo, fever. Per ED physician, patient reports recent COVID negative test result. Examination: BP(187/119, afebrile), Pulse(80), Blood Glucose(n/a) Neuro Exam: General: Alert,Awake, Oriented to Time, Place, Person Speech: Fluent: Language: Intact: Face: Facial Sensation: Intact: Right, Left Visual [place]: Intact: Right, Left Extraocular Movements: Intact: Right, Left Motor Exam: No Drift: RUE, RLE, LUE, LLE Sensation: Intact: RUE, RLE, LUE, LLE Coordination: Intact: RUE, RLE, LUE, LLE neck supple per ED cement kiln operator assisting normal gait without ataxia nor any dif ficulty Patient/Family was informed the Neurology Consult would happen via TeleHealth consult by way of interactive audio and video telecommunications and consented to receiving care in this manner. Due to the immediate potential for life-threatening deterioration due to underlying acute neurologic illness, I spent 15 minutes providing critical care. This time includes time for face to face visit via telemedicine, review of medical records, imaging studies and discussion of findings with providers, the patient and/or family. Dr Heather Hunter [facility] Case [id number] Medications and Allergies Allergies Allergy/AdvReac Type Severity Reaction Status Date / Time metronidazole [From Flagyl] AdvReac Hives Verified 09/06/18 17:46 Metronidazole HCl AdvReac Hives Verified 09/06/18 17:46 [From Flagyl] Home Medications Medication Instructions Recorded Confirmed Last Taken Type metFORMIN [Glucophage] 500 mg PO BID 09/29/16 10/18/18 09/29/16 History HYDROcodone/ACETAMINOPHEN [[place] 1 each PO Q8H PRN #8 tablet 12/13/17 10/18/18 Unknown Rx 5-325 Tablet] Promethazine [Phenergan] 25 mg PO Q6HR PRN #12 tab 09/06/18 10/18/18 Unknown Rx Sitagliptin Phosphate [Januvia] 100 mg PO QDAY 10/18/18 10/18/18 Unknown History hydrALAZINE [Apresoline TAB] 25 mg PO QDAY 10/18/18 10/18/18 Unknown History Pantoprazole [Protonix] 40 mg PO QDAY #30 tablet 10/20/18 Unknown Rx Amoxicillin/Potassium Clav 1 each PO Q12H #20 tablet 10/23/19 Unknown Rx [Augmentin 875-125 Tablet] Benzonatate [Tessalon Perles] 100 mg PO Q8HR #30 capsule 10/23/19 Unknown Rx Butalb/Acetamin/Caff 50-325-40 1 - 2 tab PO Q6HR PRN #12 tab 10/23/19 Unknown Rx [Fioricet 50-325-40] Ibuprofen [Motrin] 800 mg PO Q8HR PRN #30 tablet 10/23/19 Unknown Rx Active Meds: Active Medications Nitroglycerin (Nitroglycerin 0.4 Mg Tab Subl) 0.4 mg SL .Q5MIN PRN PRN Reason: Chest Pain Physical Examination - Vital Signs Vital Signs: Vital Signs Temp Pulse Resp BP Pulse Ox 97.9 F 80 16 187/119 99 08/15/20 09:47 08/15/20 09:47 08/15/20 09:47 08/15/20 09:47 08/15/20 09:47 Results - Laboratory Findings CBC and BMP: 08/15/20 09:57 08/15/20 09:57 Abnormal Lab Findings: Abnormal Labs 08/15/20 08/15/20 09:57 09:57 [place] % (Auto) 10.3 H Sodium 136 L Chloride 97.3 L Carbon Dioxide 33 H Glucose 112 H
[2020-08-15] MEDS ORDERED: ASPIRIN 81 MG TAB CHEW PO ONE (16:10)
--- NOTE | 2020-08-15 22:50 | Event Note ---
Date: 08/15/20 Patient left AMA Walked out of the examination room and walked away without signing any papers
== END 2020-08-15 22:50 | disposition left against medical advice (07) ==
LOC: ED 09:35 → 4A 18:22
PROVIDERS: ADMIT Internal Medicine; ATTEND Internal Medicine
DX: R07.89 Other chest pain (principal); I10 Essential (primary) hypertension; E11.9 Type 2 diabetes mellitus without complications; R10.13 Epigastric pain; H53.8 Other visual disturbances; R26.81 Unsteadiness on feet; R51.9 Headache, unspecified; Z79.84 Long term (current) use of oral hypoglycemic drugs; Z98.890 Other specified postprocedural states; Z90.49 Acquired absence of other specified parts of digestive tract
CPT/HCPCS: 36415; 70450; 71046; 80053; 82550; 83690; 83735; 84484; 84703; 85025; 93005; 99285; G0378

== ENCOUNTER 2021-07-27 12:33 | Emergency (ER) | payer MEDICARE ==
[2021-07-27 12:38] VITALS: BP 178/103
[2021-07-27] MEDS ORDERED: hydroCHLOROthiazide 25 MG TAB PO ONE (13:03)
--- NOTE | 2021-07-27 13:03 | Emergency Department Report ---
ED Chest Pain HPI - General Chief Complaint: Chest Pain Stated Complaint: CP PUI?: No Time Seen by Provider: 07/27/21 12:40 Source: patient Mode of arrival: Ambulatory Limitations: No Limitations - History of Present Illness Initial Comments: 61 yo comes to ER with co chest pain rad to r arm. No n/v/d. She has no sweating. Pt ambulatory and in nad She states she does not take her prescribed meds because of recalls and alerts on them. This includes her bp meds. She adds her is stressing her out. Pt denies sob did not get covid19 vaccine Has not seen pcp for this problem MD Complaint: chest pain -: Gradual, days(s) Pain Location: substernal Pain Radiation: RUE Severity: mild Severity scale (0 -10): 7 Quality: aching Consistency: constant Improves With: nothing Worsens With: nothing Treatments Prior to Arrival: none Aspirin use within the Past 7 Days: (0) No - Related Data Home Medications Medication Instructions Recorded Confirmed Last Taken metFORMIN [Glucophage] 500 mg PO BID 09/29/16 10/18/18 09/29/16 Sitagliptin Phosphate [Januvia] 100 mg PO QDAY 10/18/18 10/18/18 Unknown hydrALAZINE [Apresoline TAB] 25 mg PO QDAY 10/18/18 10/18/18 Unknown Previous Rx's Medication Instructions Recorded Last Taken Type Pantoprazole [Protonix] 40 mg PO QDAY #30 tablet 10/20/18 Unknown Rx Famotidine [Pepcid] 40 mg PO QHS #30 tablet 07/27/21 Unknown Rx Allergies Allergy/AdvReac Type Severity Reaction Status Date / Time metronidazole [From Flagyl] AdvReac Hives Verified 09/06/18 17:46 Metronidazole HCl AdvReac Hives Verified 09/06/18 17:46 [From Flagyl] Heart Score - HEART Score History: Slightly suspicious EKG: Normal Age: 45-65 Risk factors: > 3 risk factors or hx of atherosclerotic disease Troponin: < normal limit HEART Score: 3 - EKG Read Time Time EKG Completed: 12:41 EKG Read Time: 12:43 ED Review of Systems ROS: Stated complaint: CP Other details as noted in HPI Comment: All other systems reviewed and negative ED Past Medical Hx - Past Medical History Previous Medical History?: Yes Hx Hypertension: Yes Hx Congestive Heart Failure: No Hx Diabetes: Yes Hx Asthma: No Hx COPD: No Additional medical history: 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; obese - Surgical History Past Surgical History?: Yes Hx Cholecystectomy: Yes Additional Surgical History: fistula surgery, hemorrhoidectomy, lap band surgery, titanium plate and 9 screws placed in L arm 2005 - Family History Family history: other (fam hx cad) - Social History Smoking Status: Never Smoker Substance Use Type: None - Medications Home Medications: Home Medications Medication Instructions Recorded Confirmed Last Taken Type metFORMIN [Glucophage] 500 mg PO BID 09/29/16 10/18/18 09/29/16 History Sitagliptin Phosphate [Januvia] 100 mg PO QDAY 10/18/18 10/18/18 Unknown History hydrALAZINE [Apresoline TAB] 25 mg PO QDAY 10/18/18 10/18/18 Unknown History Pantoprazole [Protonix] 40 mg PO QDAY #30 tablet 10/20/18 Unknown Rx Famotidine [Pepcid] 40 mg PO QHS #30 tablet 07/27/21 Unknown Rx ED Physical Exam - General Limitations: No Limitations General appearance: alert, in no apparent distress - Head Head exam: Present: atraumatic, normocephalic - Eye Eye exam: Present: normal appearance - ENT ENT exam: Present: mucous membranes moist - Neck Neck exam: Present: normal inspection - Respiratory Respiratory exam: Present: normal lung sounds bilaterally. Absent: respiratory distress - Cardiovascular Cardiovascular Exam: Present: regular rate, normal rhythm. Absent: systolic murmur, diastolic murmur, rubs, gallop - GI/Abdominal GI/Abdominal exam: Present: soft, normal bowel sounds - Extremities Exam Extremities exam: Present: normal inspection - Back Exam Back exam: Present: normal inspection - Neurological Exam Neurological exam: Present: alert, oriented X3 - Psychiatric Psychiatric exam: Present: normal affect, normal mood - Skin Skin exam: Present: warm, dry, intact, normal color. Absent: rash ED Course Vital Signs 07/27/21 12:35 Temperature 98.1 F Pulse Rate 77 Respiratory 18 Rate Blood Pressure 178/103 [Right] O2 Sat by Pulse 99 Oximetry KYREE score - Kyree Score Age > 65: (0) No Aspirin use within the Past 7 Days: (0) No 3 or more CAD Risk Factors: (1) Yes 2 or more Angina events in past 24 hrs: (0) No Known CAD with more than 50% Stenosis: (0) No Elevated Cardiac Markers: (0) No ST Deviation Greater than 0.5mm: (0) No KYREE Score: 1 ED Medical Decision Making - Lab Data Result diagrams: 07/27/21 13:04 07/27/21 13:04 - EKG Data -: EKG Interpreted by Me EKG shows normal: sinus rhythm - EKG Data When compared to previous EKG there are: no significant change Interpretation: no acute changes - Radiology Data Radiology results: report reviewed, image reviewed nap - Medical Decision Making Labs 07/27/21 07/27/21 13:04 13:04 WBC 6.2 RBC 4.84 Hgb 13.1 Hct 40.7 MCV 84 MCH 27 L MCHC 32 RDW 13.8 Plt Count 264 Lymph % (Auto) 30.6 Bowman % (Auto) 11.9 H Eos % (Auto) 1.5 Baso % (Auto) 0.7 Lymph # (Auto) 1.9 Bowman # (Auto) 0.7 Eos # (Auto) 0.1 Baso # (Auto) 0.0 Seg Neutrophils % 55.3 Seg Neutrophils # 3.5 Sodium 137 Potassium 4.3 Chloride 97.5 L Carbon Dioxide 27 Anion Gap 17 BUN 13 Creatinine 0.7 Estimated GFR > 60 BUN/Creatinine Ratio 19 Glucose 126 H Calcium 9.2 Total Bilirubin 0.30 AST 16 ALT 15 Alkaline Phosphatase 83 Troponin T < 0.010 Total Protein 7.0 Albumin 4.2 Albumin/Globulin Ratio 1.5 Lipase 43 Vital Signs 07/27/21 12:35 Temperature 98.1 F Pulse Rate 77 Respiratory 18 Rate Blood Pressure 178/103 [Right] O2 Sat by Pulse 99 Oximetry labs noted xray noted 12 lead noted normal given gi cocktail with pain relief pt has had gastric banding with removal of it because "food would not go down" but she denies hx of gerd however ppi has been rx to her in the past pt educated on gerd pt educated on bp and "recall" on her meds v the risk of cva she is neuro intact took hctz in ER bp 150/90 on dc by provider she states she will consider taking it I've given her referral to pcp to discuss options dc home with dc plan of care including diet, activity, follow up and meds. She verbalizes understanding of plan of care - Differential Diagnosis ro acs/gi etio of pain Critical care attestation.: If time is entered above; I have spent that time in minutes in the direct care of this critically ill patient, excluding procedure time. ED Disposition Clinical Impression: Diabetes, Non-adherence to medical treatment, GERD (gastroesophageal reflux disease) HTN (hypertension) Qualifiers: Hypertension type: unspecified Qualified Code(s): I10 - Essential (primary) hypertension Obese Qualifiers: Obesity type: due to excess calories Disposition: HOME / SELF CARE / HOMELESS Is pt being admited?: No Does the pt Need Aspirin: No Condition: Stable Instructions: Gastroesophageal Reflux Disease, Adult, Rtkj-ct-Teer, Diabetes Mellitus Type 2 in Adults (ED), Hypertension (ED) Additional Instructions: take your meds daily as PCP has instructed you take med ordered today for heart burn follow up with pcp next week for recheck referral below Prescriptions: Famotidine [Pepcid] 40 mg PO QHS #30 tablet Referrals: ZAHRA BEDOYA MD [Primary Care Provider] - 3-5 Days MELVA JENKINS MD [Staff Physician] - 3-5 Days Time of Disposition: 13:02
[2021-07-27 13:47] LABS: Basophils % (Auto) 0.7 % (0.0-1.8); Eosinophils # (Auto) 0.1 K/mm3 (0.0-0.4); Eosinophils % (Auto) 1.5 % (0.0-4.3); Hematocrit 40.7 % (30.3-42.9); Hemoglobin 13.1 gm/dl (10.1-14.3); Lymphocytes # (Auto) 1.9 K/mm3 (1.2-5.4); Lymphocytes % (Auto) 30.6 % (13.4-35.0); Mean Corpuscular HGB Conc 32 % (30-34); Mean Corpuscular Volume 84 fl (79-97); Monocytes # (Auto) 0.7 K/mm3 (0.0-0.8); Monocytes % (Auto) 11.9 % (0.0-7.3); Platelet Count 264 K/mm3 (140-440); Red Blood Count 4.84 M/mm3 (3.65-5.03); Red Cell Distribution Width 13.8 % (13.2-15.2)
--- NOTE | 2021-07-27 14:04 | XRay Report ---
CHEST 2 VIEWS INDICATION / CLINICAL INFORMATION: Chest Pain. COMPARISON: 08/15/20. FINDINGS: SUPPORT DEVICES: None. HEART / MEDIASTINUM: The heart size and pulmonary vasculature are normal. There is mild aortic tortuo sity without aneurysm. LUNGS / PLEURA: No significant pulmonary or pleural abnormality. No pneumothorax. ADDITIONAL FINDINGS: There are bilateral cervical ribs. IMPRESSION: No acute abnormality or significant change. Signer Name: Qasim Escobedo MD Signed: 07/27/2021 2:00 PM Workstation Name: [id number]
[2021-07-27 14:12] LABS: Alanine Aminotransferase 15 units/L (7-56); Albumin 4.2 g/dL (3.9-5); Blood Urea Nitrogen 13 mg/dL (7-17); Calcium 9.2 mg/dL (8.4-10.2); Hemolysis Index 16
[2021-07-27 14:13] LABS: BUN/Creatinine Ratio 19
[2021-07-27] MEDS ORDERED: PANTOPRAZOLE 40 MG TAB PO ONE (14:15)
[2021-07-27] MEDS ORDERED: ALUM-MAG HYDROXIDE-SIMETHICONE 200-200-20MG/5ML ORAL LIQD 30 ML PO ONE (14:15)
[2021-07-27] MEDS ORDERED: LIDOCAINE VISCOUS 2% 15 ML ORAL LIQD PO ONE (14:15)
--- NOTE | 2021-07-28 10:53 | Electrocardiograph Report ---
[facility] Test Date: 2021-07-27 Test Time: 12:45:44 Pat Name: JENNY BARKLEY Department: Room: Gender: F Process Automation Engineer: RADHA : 1960 Requested By: DU DAVIS Order Number: [id number] Reading MD: Jero Barlow Measurements Intervals [place] Rate: 77 P: 28 KS: 156 QRS: -27 QRSD: 104 T: 7 QT: 404 QTc: 456 Interpretive Statements Sinus rhythm No previous ECG available for comparison Electronically Signed On 07-28-2021 10:52:42 EST by Jero Barlow
== END 2021-07-27 15:19 | disposition home or self-care (01) ==
LOC: ED 12:33
DX: K21.9 Gastro-esophageal reflux disease without esophagitis (principal); E11.8 Type 2 diabetes mellitus with unspecified complications; Z91.19 Patient's noncompliance with other medical treatment and regimen; I10 Essential (primary) hypertension; E66.01 Morbid (severe) obesity due to excess calories; E66.09 Other obesity due to excess calories; Z88.1 Allergy status to other antibiotic agents; Z90.49 Acquired absence of other specified parts of digestive tract
CPT/HCPCS: 36415; 71046; 80053; 83690; 84484; 85025; 93005; 99283

== ENCOUNTER 2021-10-25 13:59 | Emergency (ER) | payer MEDICARE ==
[2021-10-25] MEDS ORDERED: dexAMETHasone 4 MG/ML VIAL IM ONE (19:41)
[2021-10-25] MEDS ORDERED: AMOXICILLIN/K CLAV 875/125MG TAB PO ONE (19:42)
[2021-10-25] MEDS ORDERED: BENZONATATE 100 MG CAP PO ONE (19:43)
--- NOTE | 2021-10-25 20:08 | Emergency Department Report ---
- General Chief Complaint: Sore Throat Stated Complaint: UPPER RESP INFECTION Time Seen by Provider: 10/25/21 19:40 Source: patient Mode of arrival: Ambulatory Limitations: No Limitations - History of Present Illness Initial Comments: 61-year-old white female with past medical history of diabetes and hypertension presents to the emergency department for evaluation of 1 week history of worsening cough congestion sneezing and sore throat. She states that she is attempted several usmi-evi-uokhyhd medications for both cough and sinus without improvement. She states that she has not developed a headache and her sputum is now greenish-yellow in color. She denies fever, shortness of breath, and vomiting, but states that she has had some intermittent nausea. She also complains of some intermittent lower back pain. MD Complaint: cough, sore throat, rhinorrhea, nasal congestion, sinus pain -: Gradual, week(s) (1) Severity: moderate Severity scale (0 -10): 8 Quality: aching Consistency: constant Associated Symptoms: headache, rhinorrhea, nasal congestion, sore throat, cough, nausea. denies: fever, chills, myalgias, diaphoresis, stiff neck, chest pain, shortness of breath, abdominal pain, vomiting, diarrhea, dysuria, rash, confusion, hoarseness, ear pain Treatments Prior to Arrival: "cold medicine", other (Sinus medication) - Related Data Home Medications Medication Instructions Recorded Confirmed Last Taken metFORMIN [Glucophage] 500 mg PO BID 09/29/16 10/18/18 09/29/16 Sitagliptin Phosphate [Januvia] 100 mg PO QDAY 10/18/18 10/18/18 Unknown hydrALAZINE [Apresoline TAB] 25 mg PO QDAY 10/18/18 10/18/18 Unknown Previous Rx's Medication Instructions Recorded Last Taken Type Pantoprazole [Protonix] 40 mg PO QDAY #30 tablet 10/20/18 Unknown Rx Famotidine [Pepcid] 40 mg PO QHS #30 tablet 07/27/21 Unknown Rx Amoxicillin/Potassium Clav 1 each PO BID #14 tab 10/25/21 Unknown Rx [Augmentin 875-125 Tablet] guaiFENesin/CODEINE [Robitussin AC] 5 ml PO TID PRN #120 ml 10/25/21 Unknown Rx Allergies Allergy/AdvReac Type Severity Reaction Status Date / Time metronidazole [From Flagyl] AdvReac Hives Verified 09/06/18 17:46 Metronidazole HCl AdvReac Hives Verified 09/06/18 17:46 [From Flagyl] ED Review of Systems ROS: Stated complaint: UPPER RESP INFECTION Other details as noted in HPI Comment: All other systems reviewed and negative Constitutional: denies: chills, diaphoresis, fever, malaise, weakness Eyes: denies: eye pain, eye discharge, vision change ENT: throat pain, congestion. denies: ear pain, dental pain, hearing loss, epistaxis Respiratory: cough. denies: orthopnea, shortness of breath, SOB with exertion, SOB at rest Cardiovascular: denies: chest pain, palpitations, dyspnea on exertion, orthopnea, edema, syncope, paroxysmal nocturnal dyspnea Endocrine: no symptoms reported Genitourinary: denies: urgency, dysuria, frequency, hematuria, discharge Musculoskeletal: denies: back pain Skin: denies: rash, lesions, change in color, change in hair/nails Neurological: headache. denies: weakness, numbness, paresthesias, confusion, abnormal gait, vertigo Psychiatric: denies: anxiety, depression Hematological/Lymphatic: denies: easy bleeding, easy bruising ED Past Medical Hx - Past Medical History Hx Hypertension: Yes Hx Congestive Heart Failure: No Hx Diabetes: Yes Hx Asthma: No Hx COPD: No Additional medical history: 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; obese - Surgical History Hx Cholecystectomy: Yes Additional Surgical History: fistula surgery, hemorrhoidectomy, lap band surgery, titanium plate and 9 screws placed in L arm 2006 - Social History Smoking Status: Never Smoker Substance Use Type: None - Medications Home Medications: Home Medications Medication Instructions Recorded Confirmed Last Taken Type metFORMIN [Glucophage] 500 mg PO BID 09/29/16 10/18/18 09/29/16 History Sitagliptin Phosphate [Januvia] 100 mg PO QDAY 10/18/18 10/18/18 Unknown History hydrALAZINE [Apresoline TAB] 25 mg PO QDAY 10/18/18 10/18/18 Unknown History Pantoprazole [Protonix] 40 mg PO QDAY #30 tablet 10/20/18 Unknown Rx Famotidine [Pepcid] 40 mg PO QHS #30 tablet 07/27/21 Unknown Rx Amoxicillin/Potassium Clav 1 each PO BID #14 tab 10/25/21 Unknown Rx [Augmentin 875-125 Tablet] guaiFENesin/CODEINE [Robitussin AC] 5 ml PO TID PRN #120 ml 10/25/21 Unknown Rx ED Physical Exam - General Limitations: No Limitations General appearance: alert, in no apparent distress - Head Head exam: Present: atraumatic, normocephalic - Eye Eye exam: Present: normal appearance. Absent: conjunctival injection - ENT ENT exam: Present: mucous membranes moist, normal external ear exam. Absent: normal exam (Bilateral nasal mucosal edema and turbinate edema noted with purulent drainage.), normal orophraynx (Erythema to posterior oropharynx) - Expanded ENT Exam Expanded Mouth exam: Present: normal external inspection Throat exam: Negative: tonsillar erythema, tonsillomegaly, tonsillar exudate, R peritonsillar mass, L peritonsillar mass - Neck Neck exam: Present: normal inspection, lymphadenopathy - Respiratory Respiratory exam: Present: normal lung sounds bilaterally. Absent: respiratory distress, wheezes, rales, rhonchi, stridor, chest wall tenderness, accessory muscle use - Cardiovascular Cardiovascular Exam: Present: regular rate, normal heart sounds - GI/Abdominal GI/Abdominal exam: Present: soft, normal bowel sounds. Absent: distended, tenderness, guarding, rebound, rigid - Extremities Exam Extremities exam: Present: normal inspection - Back Exam Back exam: Present: normal inspection. Absent: tenderness, CVA tenderness (R), CVA tenderness (L), paraspinal tenderness, vertebral tenderness - Neurological Exam Neurological exam: Present: alert, oriented X3 - Psychiatric Psychiatric exam: Present: normal affect, normal mood - Skin Skin exam: Present: warm, dry, intact ED Course Vital Signs 10/25/21 14:38 Temperature 97.8 F Pulse Rate 88 Respiratory 16 Rate Blood Pressure 154/86 [Left] O2 Sat by Pulse 99 Oximetry ED Medical Decision Making - Medical Decision Making 61-year-old white female with past medical history of diabetes and hypertension presents to the emergency department for evaluation of 1 week history of worsening cough congestion sneezing and sore throat. She states that she is attempted several gmws-mog-llhepai medications for both cough and sinus without improvement. She states that she has not developed a headache and her sputum is now greenish-yellow in color. She denies fever, shortness of breath, and vomiting, but states that she has had some intermittent nausea. She also complains of some intermittent lower back pain. No gross abnormalities noted on assessment, but exam consistent with sinusitis. Given that patient has taken several days of xthz-rdc-udfftnq sinus medication but has not had improvement but worsening, she will be treated with 7-day course of Augmentin. She will be given one-time dose of steroids to improve mucosal edema but no steroid pack secondary to history of diabetes. She will be given cough medicine to use as needed for cough. She was advised to take medications as prescribed, drink plenty of noncaffeinated fluids, and follow-up with primary care provider if no improvement or worsening symptoms. She verbalized understanding of and agreement with plan of care. Critical care attestation.: If time is entered above; I have spent that time in minutes in the direct care of this critically ill patient, excluding procedure time. ED Disposition Clinical Impression: Acute bacterial rhinosinusitis Disposition: 01 HOME / SELF CARE / HOMELESS Is pt being admited?: No Does the pt Need Aspirin: No Condition: Stable Instructions: Antibiotic Medicine, Adult, Axmg-dk-Mybk, Sinusitis, Adult, Vvxe-hu-Xdbx, How to Perform a Sinus Rinse, Oyoq-bz-Mrod Additional Instructions: Take medications as prescribed. Follow-up with primary care provider if no improvement or worsening symptoms. Prescriptions: Amoxicillin/Potassium Clav [Augmentin 875-125 Tablet] 1 each PO BID #14 tab guaiFENesin/CODEINE [Robitussin AC] 5 ml PO TID PRN #120 ml PRN Reason: Cough Referrals: AVI ESPINO MD [Referring] - 3-5 Days Time of Disposition: 20:08
[2021-10-25 21:21] VITALS: BP 151/97
== END 2021-10-25 21:08 | disposition home or self-care (01) ==
LOC: ED 13:59
DX: J01.80 Other acute sinusitis (principal); B96.89 Other specified bacterial agents as the cause of diseases classified elsewhere; I10 Essential (primary) hypertension; E11.9 Type 2 diabetes mellitus without complications; Z90.49 Acquired absence of other specified parts of digestive tract; Z91.09 Other allergy status, other than to drugs and biological substances
CPT/HCPCS: 96372; 99282; J1100

== ENCOUNTER 2022-01-01 21:06 | Emergency (ER) | payer MEDICARE ==
[2022-01-01 21:45] VITALS: BP 138/84
--- NOTE | 2022-01-01 22:15 | XRay Report ---
LEFT FOURTH-FIFTH TOES 3 VIEWS INDICATION / CLINICAL INFORMATION: 4th-5th toe injury COMPARISON: None available. FINDINGS: BONES and JOINT(S): No acute fracture or subluxation. No significant arthritis. SOFT TISSUES: No significant abnormality. ADDITIONAL FINDINGS: None. IMPRESSION: 1. No acute findings. Signer Name: Justin Light MD Signed: 01/01/2022 10:10 PM Workstation Name: [id number]
== END 2022-01-01 22:15 | disposition left against medical advice (07) ==
LOC: ED 21:06
DX: S99.929A Unspecified injury of unspecified foot, initial encounter (principal); Z53.21 Procedure and treatment not carried out due to patient leaving prior to being seen by health care provider; X58.XXXA Exposure to other specified factors, initial encounter; Y93.89 Activity, other specified; Y92.89 Other specified places as the place of occurrence of the external cause; Y99.8 Other external cause status